=== PATIENT | female | born 1945 | race Caucasian/White ===

== ENCOUNTER 2016-08-03 15:33 | Emergency (ER) ==
[2016-08-03 15:57] VITALS: BP 129/65
--- NOTE | 2016-08-03 18:21 | PROVIDER DOCUMENTATION ---
HPI-EENT General - General Chief Complaint: Earache Stated Complaint: EARACHE Time Seen by Provider: 08/03/16 16:00 Source: patient Allergies/Adverse Reactions: Patient Allergies Allergy/AdvReac Type Severity Reaction Status Date / Time No Known Allergies Allergy Verified 08/03/16 16:51 Home Medications: Trazodone [Desyrel] 150 mg PO QHS 04/26/12 Digoxin 125 mcg PO DAILY 11/02/12 Diltiazem HCl [Diltiazem 24Hr ER] 300 mg PO DAILY 11/02/12 Fluticasone/Salmeterol [Advair 250-50 Diskus] 1 each IH DAILY 11/02/12 Ipratropium/Albuterol INH [Combivent Inhaler] 1 puff INH RTQ6H 11/02/12 Propafenone HCl 225 mg PO BID 11/02/12 Oxybutynin [Ditropan] 5 mg PO BID 06/10/14 Apixaban [Eliquis] 5 mg PO DAILY 10/29/14 Losartan Potassium 25 mg PO BID 10/29/14 Montelukast [Singulair] 10 mg PO DAILY 10/29/14 Potassium Chloride E.r. [Micro-K] 20 meq PO DAILY 10/29/14 Pravastatin Sodium 40 mg PO QHS 10/29/14 - History of Present Illness-EENT General Nature of Presenting Problem: This pt presents today c complaints of sinus pain, left ear pain and mild dry cough which causes pain in her Left side X 1 week. No fever, chills, n/v/d or respiratory distress. EENT Location: reports: ear (L), facial Quality of Pain: reports: aching Severity: reports: moderate Onset/Duration: reports: 1 week ago Prearrival Treatment: Initiated no prearrival treatment Associated Symptoms: reports: cough, facial pain/swelling, nasal congestion/ drainage, sinus infection Similar Symptoms Previously?: No Recently seen or treated by another doctor?: No Review of Systems - Adult - REVIEW OF SYSTEMS - ADULT Constitutional: reports: cayla. denies: chills, fever, night sweats Eyes: reports: no symptoms reported. denies: discharge, dry eyes Ears, Nose, Mouth & Throat: reports: ear pain, sinus problem. denies: ear discharge, nose pain, loose teeth Cardiovascular: reports: no symptoms reported. denies: chest pain, edema Respiratory: reports: cough. denies: chronic cough, pleurisy, shortness of breath Gastrointestinal: reports: no symptoms reported. denies: abdominal pain, hematemesis Genitourinary: reports: no symptoms reported. denies: dysuria, discharge Musculoskeletal: reports: see HPI. denies: bone pain, back pain Integumentary: reports: no symptoms reported. denies: hives, hair loss Neurological: reports: no symptoms reported. denies: dizziness/vertigo, headache/migraines Psychiatric: reports: no symptoms reported. denies: anxiety, anti-depressant use Endocrine: reports: no symptoms reported Hematologic/Lymphatic: reports: no symptoms reported Allergic/Immunologic: reports: no symptoms reported All Other Systems: Reviewed and Negative Past History - Adult - PAST MEDICAL HISTORY-ADULT Review of Records: reports: Old Records Reviewed, Nursing Assessment Review, Medications Reviewed, Social history reviewed & non-contributory. Major Childhood Illnesses: reports: denies history Cardiovascular: reports: CHF, HTN Respiratory: reports: asthma, COPD Gastrointestinal: reports: denies history Obstetrical/Gynecological: reports: denies history Genitourinary: reports: denies history Musculoskeletal: reports: chronic pain (back), neck/back injury Neurological: reports: denies history Endocrine/Immune: reports: denies history Other Conditions: reports: denies history - PRIOR SURGERIES/PROCEDURES Surgical/Procedure History: reports: cholecystectomy, other (tympanic membrane, cataract surgeries) - IMMUNIZATION STATUS Childhood Immunizations: See Nurse Assessment Flu Vaccine: See Nurse Assessment - FAMILY HISTORY Family History: reviewed, not pertinent Physical Exam- EENT - Physical Exam EENT Initial Vital Signs Reviewed: Yes General Appearance: appears well, alert, no apparent distress Eye Exam: bilateral eye: normal inspection, PERRL, EOMI Ear Exam: bilateral ear: auricle normal, canal normal, TM normal Nasal Exam: sinus tenderness Throat Exam: normal mouth inspection, pharynx normal. negative: pharynx tenderness, tonsillar exudate, tonsillar swelling Neck: non-tender, full range of motion, supple, normal inspection. negative: limited range of motion, lymphadenopathy, meningismus Respiratory: lungs clear, normal breath sounds, no pleuratic chest pain, no respiratory distress, no accessory muscle use, other (mild tenderness c palpation to left chest wall). negative: respiratory distress, decreased breath sounds, accessory muscle use, crackles, rales, rhonchi, prolonged expiration, pain on inspiration Cardiovascular: normal peripheral pulses, regular rate, rhythm, no edema, no gallop, no JVD, no murmur Abdominal Exam: normal bowel sounds, non tender, soft, no organomegaly, no pulsatile mass Lymphatic: no adenopathy Back Exam: normal inspection, no CVA tenderness, no vertebral tenderness Extremity: normal range of motion, non-tender, normal gait, normal inspection, no pedal edema, no calf tenderness, normal capillary refill, pelvis stable Integumentary: normal color, normal turgor, warm/dry Neurologic: surgery aid II-XII nml as tested, no motor/sensory deficits Psych/Mental Status: AL, normal mood/affect, normal thought content, normal thought process, oriented x 3 Progress - PLAN OF CARE/RESULTS Progress/Plan/Lab Results: Orders Category Date Time Status CHEST-2 VIEWS [RAD] Stat Exams 08/03/16 16:[address] THORAX W/O CONTRAST [CT] Stat Exams 08/03/16 16:42 Taken Vital Signs Temp Pulse Resp BP Pulse Ox 08/03/16 15:53 98.1 F 54 L 18 129/65 98 No Known Allergies Allergy (Verified 08/03/16 16:51) Trazodone [Desyrel] 150 mg PO QHS 04/26/12 Metoprolol [Lopressor] 25 mg PO BID #60 tablet 04/28/12 Digoxin 125 mcg PO DAILY 11/02/12 Diltiazem HCl [Diltiazem 24Hr ER] 300 mg PO DAILY 11/02/12 Fluticasone/Salmeterol [Advair 250-50 Diskus] 1 each IH DAILY 11/02/12 Ipratropium/Albuterol INH [Combivent Inhaler] 1 puff INH RTQ6H 11/02/12 Propafenone HCl 225 mg PO BID 11/02/12 Oxybutynin [Ditropan] 5 mg PO BID 06/10/14 Apixaban [Eliquis] 5 mg PO DAILY 10/29/14 Bisacodyl [Dulcolax] 10 mg LA QHS #20 supp 10/29/14 Losartan Potassium 25 mg PO BID 10/29/14 Montelukast [Singulair] 10 mg PO DAILY 10/29/14 Na Phos,M-B/Na Phos,Di-Ba [Fleet Enema] 133 ml LA HS PRN PRN #3 enema 10/29/14 Polyethylene Glycol 3350 [Miralax] 527 gm PO DAILY #1 powder 10/29/14 Potassium Chloride E.r. [Micro-K] 20 meq PO DAILY 10/29/14 Pravastatin Sodium 40 mg PO QHS 10/29/14 Albuterol 2.5MG/Ipratrop 0.5MG [Duoneb (A & A)] 3 ml .SEE ORDER Q6H PRN PRN # 120 neb 02/05/16 Doxycycline [Vibramycin] 100 mg PO BID #20 tablet 02/05/16 Loratadine [Claritin] 10 mg PO QHS #90 tablet 02/05/16 Discussed the results and importance of f/u c pt and family. They verbalized understanding and agreement c plan. - XRAY 1 XRAY Study: Chest XRAY Interpretation: ? area on LLL - CT/MRI 1 CT Study: Thorax Impression: Need Further Study (Follow-Up films) CT Results: Emphysema; 2cm opacity in LLL (pneumonitis vs neoplasm) Departure - Departure Time of Disposition Order: 18:20 DIAGNOSIS: Opacity of lung on imaging study Acute sinusitis Qualifiers: Sinusitis location: pansinusitis Recurrence: non-recurrent Qualified Code(s): J01.40 - Acute pansinusitis, unspecified Disposition: HOME 01 Certified Medical Emergency: Emergent Condition: Good Additional Instructions: Take medication as prescribed. As we discussed, follow up closely with your primary care provider. Return to the ER for any new or worsening symptoms. ED Follow Up Instructions: You have been treated by a care provider in the Emergency Department. These instructions are being provided to you so you can have an understanding of how to care for yourself upon discharge. Upon discharge from the Emergency Department, you are responsible for making arrangements for follow-up care by a physician of your choice. Take all prescribed medications as directed. Return to the Emergency Department immediately for any new or worsening symptoms. You may call the Physician Referral phone number at [phone] to obtain a list of Physicians who are taking new patients. Prescriptions: Guaifenesin/D-Methorphan Hb/PE [Deconex Dmx Tablet] 1 each PO TID #30 tablet Azithromycin [Zithromax Z-Leandro] 250 mg PO DIRECTED #1 pkg Referrals: Shantel Cotto CRNP [Primary Care Provider] - Attestation - Physician/ Mid-level Attestation Patient care was provided by Mid-level provider (MANAGER FILTER/PA):: Yes Mid-level provider:: Lazaro Haley Mid-level documentation review:: The Mid-level provider documentation, treatment plan and medical decision making was reviewed by the physician who agrees with all treatment and medical decision making by the MLP.
--- NOTE | 2016-08-03 21:27 | Diag Imaging Result Document ---
PROCEDURE NAME: CT THORAX W/O CONTRAST - 08/03/2016 STUDY: CT chest without contrast. PROTOCOL: Dose reduction protocol. There is a 1.9 cm rounded opacity in the posterior left lower lobe. Questionable tiny cavity along the inferior border. No pleural effusions. Minimal left posterior pleural thickening. There is a calcified granuloma in the left lower lobe and there are calcified left hilar lymph nodes. Mildly prominent noncalcified mediastinal lymph nodes as well. The heart is not enlarged. No thoracic aortic aneurysm. Emphysematous changes are present. Tiny nonspecific density in the left upper lobe on image 24. A 3-4 mm nonspecific nodule posteriorly in the right lung on image 37. Additional tiny density in the right lung on image 47. A 3-4 mm nodular density in the mid right lung on image 58. IMPRESSION: 1. There is a 1.9 cm rounded opacity in the left lower lobe which could be focal pneumonitis or neoplasm. Short-term followup recommended. 2. Emphysema. 3. Tiny nonspecific densities bilaterally. 4. There is evidence of a prior granulomatous infection. 5. Limited images through the upper abdomen reveals a cholecystectomy. A preliminary report was given at 5:53 p.m. [facility]
--- NOTE | 2016-08-04 06:49 | Diag Imaging Result Document ---
PROCEDURE NAME: CHEST-2 VIEWS - 08/03/2016 FRONTAL AND LATERAL CHEST, TWO VIEWS: COMPARISON: Compared to 02/05/1016. FINDINGS: The lungs are hyperexpanded. The heart is not enlarged. The pulmonary vessels are small. There is granuloma in the mid left lung. No pleural effusions. No consolidation. IMPRESSION: 1. Emphysema. 2. Rounded opacity seen on the recent CT is poorly identified on the plain films.
== END 2016-08-03 19:09 | disposition home or self-care (01) ==
LOC: ED 15:33
DX: J01.40 Acute pansinusitis, unspecified (principal); R94.2 Abnormal results of pulmonary function studies; R51 Headache; H92.02 Otalgia, left ear; R05 Cough; R53.83 Other fatigue; I10 Essential (primary) hypertension; J44.9 Chronic obstructive pulmonary disease, unspecified; Z79.899 Other long term (current) drug therapy; R09.81 Nasal congestion; M54.9 Dorsalgia, unspecified; G89.29 Other chronic pain; Z79.51 Long term (current) use of inhaled steroids; Z79.01 Long term (current) use of anticoagulants
CPT/HCPCS: 71020; 71250

== ENCOUNTER 2018-09-09 15:10 | Inpatient (IN) ==
--- NOTE | 2018-09-09 16:20 | Diag Imaging Result Doc PS360 ---
EXAM: CHEST-1 VIEW 09/09/2018 HISTORY: SEPSIS PROTOCOL TECHNIQUE: AP supine at 1615 COMMENT: There is elevation of the left hemidiaphragm as there was on 03/23/2018. Considering differences in inspiration and technique there has been no significant change. IMPRESSION: Stable chest. Electronically signed by Pal Pizarro 09/09/2018 4:18 PM
[2018-09-09 16:57] LABS: BASO# 0.06 X1000 (0.0-0.2); BASO% 0.2 % (0.0-0.8); EOS# 0.05 X1000 (0.0-0.7); EOS% 0.2 % (0.0-10.0); HEMATOCRIT 44.3 % (37.0-47.0); HEMOGLOBIN 15.2 g/dL (12.0-16.0); IMM GRAN# 0.37 X1000 (0.0-0.04); IMM GRAN% 1.4 % (0.0-0.5); LYMPH% 11.3 % (20.5-51.1); MCH 31.2 PG (27-31); MCHC 34.3 g/dL (33-37); MONO# 2.22 X1000 (0.11-0.59); MONO% 8.6 % (1.7-9.3); NEUT# 20.17 X1000 (1.4-6.5); NEUT% 78.3 % (42.2-75.2); PLT 341 X1000 (130-400); RBC 4.87 XMIL (4.2-5.4); RDW 13.1 % (11.5-14.5); WBC 25.77 X1000 (4.8-10.8)
[2018-09-09 17:04] LABS: INR 1.37; PROTIME 17.9 Seconds (11.0-16.0)
[2018-09-09 17:05] LABS: PTT 38.9 Seconds (22.3-41.8)
[2018-09-09 17:17] LABS: AGAP 14; ALB/GLOB RATIO 0.9; ALBUMIN 3.2 g/dL (3.5-5.0); ALKALINE PHOSPHATASE 310 U/L (32-104); BUN 19 mg/dL (8-22); CHLORIDE 91 mmol/L (98-107); CK PROFILE 64 U/L (24-173); COSMO 272; CREATININE 0.6 mg/dL (0.5-0.9); ESTIMATED GFR > 60; GLUCOSE 125 mg/dL (70-104); GOT 36 U/L (10-30); GPT 23 U/L (10-36); SODIUM 134 mmol/L (136-145); TCO2 29 mmol/L (25-35); TOTAL BILIRUBIN 0.43 mg/dL (0.20-1.00); TOTAL PROTEIN 6.8 g/dL (6.3-8.3)
--- NOTE | 2018-09-09 18:11 | Diag Imaging Result Doc PS360 ---
EXAM: CT HEAD W/CONTRAST HISTORY: large abscess on right face, pus out of ears TECHNIQUE: CT head without contrast COMPARISON: 09/04/2018 FINDINGS: No parenchymal hemorrhage. No epidural or subdural hematoma. No subarachnoid hemorrhage. There are chronic microvascular ischemic changes. No hydrocephalus. No midline shift. No intracranial enhancing lesion. Marked right facial soft tissue swelling. IMPRESSION: 1.No intracranial hemorrhage 2.Chronic microvascular ischemic changes 3.Marked right lateral facial soft tissue swelling This exam was performed using automated exposure control, adjustment of mA or kV according to patient size, and/or use of iterative reconstruction technique. Electronically signed by Eddie Carrasquillo 09/09/2018 6:09 PM
[2018-09-09] MEDS ORDERED: VANCOMYCIN 1 GM/NS 1 GM/250 ML IVPB IV ONE (18:28)
[2018-09-09] MEDS ORDERED: LEVAQUIN 500 MG/D5W 500 MG/100 ML IVPB IV ONE (18:28)
[2018-09-09] MEDS ORDERED: CIPRODEX OTIC SUSPENSION RIGHT EAR ONE (18:30)
[2018-09-09] MEDS ORDERED: ZOFRAN IV ONE (19:33)
[2018-09-09] MEDS ORDERED: MORPHINE IV ONE (19:33)
--- NOTE | 2018-09-09 19:42 | Diag Imaging Result Doc PS360 ---
EXAM: CT NECK W/CONTRAST HISTORY: large indurated area worse since last scan TECHNIQUE: CT neck with intravenous contrast. COMPARISON: 09/04/2018 FINDINGS: Multiple attempts made to dictate the exam, but secondary to a failure in the system no dictation could be made. Marked interval increase in the size of the right parotid gland. There is a large multi septated cystic area with peripheral enhancement as well as enhancement of the septations. This area measures at least 5.5 x 6.0 cm with extension deep to the right mandibular ramus. No air within the parotid gland. No calcifications seen. Bilateral prominent lymph nodes have an appearance similar to the prior study. There is actually decreased inflammation about the left parotid gland on the current study. IMPRESSION: Development of a large right parotid abscess. This exam was performed using automated exposure control, adjustment of mA or kV according to patient size, and/or use of iterative reconstruction technique. Electronically signed by Eddie Carrasquillo 09/09/2018 7:40 PM
[2018-09-09] MEDS ORDERED: ZOFRAN IV PRN (20:08)
[2018-09-09] MEDS: NS 1,000 ML IV SCH (20:15)
[2018-09-09 20:46] LABS: HEMOGLOBIN A1C 5.6 % (4.8-6.0)
[2018-09-09] MEDS ORDERED: COMBIVENT RESPIMAT INHALER INH SCH (22:00)
[2018-09-09] MEDS: DUONEB (A & A) INH SCH (22:00)
[2018-09-09] MEDS ORDERED: VANCOMYCIN IV PER PHARMACY MISC SCH (23:11)
[2018-09-09] MEDS: DESYREL PO SCH (23:20)
[2018-09-09] MEDS: DITROPAN PO SCH (23:21)
[2018-09-09] MEDS: KLONOPIN PO SCH (23:22)
[2018-09-09] MEDS: ELIQUIS PO SCH (23:22)
[2018-09-09] MEDS: ZANTAC PO SCH (23:23)
[2018-09-09] MEDS: LOPRESSOR PO SCH (23:24)
[2018-09-09] MEDS: HUMALOG SUBQ SCH (23:25)
[2018-09-09] MEDS: MORPHINE IV PRN (23:26)
[2018-09-10] MEDS ORDERED: VANCOMYCIN 500 MG/NS 500 MG/100 ML IVPB IV ONE (03:30)
[2018-09-10] MEDS: DUONEB (A & A) INH SCH ×4 (05:06→20:11)
[2018-09-10] MEDS: HUMALOG SUBQ SCH ×4 (06:32→20:12)
[2018-09-10] MEDS: PRILOSEC PO SCH (06:33)
--- NOTE | 2018-09-10 06:39 | HISTORY AND PHYSICAL ---
CHIEF COMPLAINT: Right ear pain, swelling to right face and neck. HISTORY OF PRESENT ILLNESS: This is a 73-year-old female with a past medical history of Parkinson's, hypertension, diastolic heart failure, hyperlipidemia, diabetes mellitus type 2, GERD and lung cancer who comes in after having pain in her right face, ear with drainage within her ear as well as her right neck. She also had some complaint of blurring of her right eye. This has been going on since, I believe the of this month. She was originally evaluated at [facility] at that time, sent home with pain management for what they thought was a right- sided parotid mass. Tonight, a laboratory workup as well as a CT of her neck and head were completed. This showed the development of a large right parotid abscess. The area was around 5.5 x 6 cm with extension to the deep right mandibular ramus. Dr. Mims with ENT was contacted by the ER provider. He recommended admission with treatment with Ciprodex drops to the right ear, Levaquin and vancomycin. She will be admitted for further evaluation and treatment. PAST MEDICAL HISTORY: 1. Atrial fibrillation. 2. Parkinsonism. 3. Hypertension. 4. Diastolic dysfunction. 5. Hyperlipidemia. 6. Diabetes mellitus type 2. 7. GERD. 8. Tobacco abuse. 9. Lung cancer. PREVIOUS SURGICAL HISTORY: 1. Cholecystectomy. 2. Lung biopsy. 3. Lobectomy. SOCIAL HISTORY: Smokes 1/2 pack a day, has for 50 years. She is retired, lives with her . No alcohol, no illicit drugs. FAMILY HISTORY: She denied any family history. No cardiac disease. No COPD. No breast cancer. ALLERGIES: No known drug allergies. HOME MEDICATIONS: A list of home medications could not be reconciled. Order was placed for nursing to reconcile home medications. I believe she takes Eliquis, oxycodone, Sinemet, Klonopin, digoxin, Cardizem and metoprolol. An updated list is pending. REVIEW OF SYSTEMS: Fourteen point review of systems conducted with the patient. She had complaint of right facial swelling, right neck swelling, right ear pain with drainage, blurriness of vision in the right eye as well as some abdominal pain. Otherwise, 14 point review of systems was negative. Other pertinent positives listed above in the HPI. PHYSICAL EXAMINATION: VITAL SIGNS: Temp 99.3 degrees, pulse 103, respirations 22, blood pressure 116/ 88, oxygen saturation 95% on room air. GENERAL: 73-year-old female lying in the ER stretcher, thin, does not appear to be in acute distress. HEENT: Head is atraumatic, normocephalic. Swelling of the right face down into neck. Pupils are equal, round and reactive to light. Right eye has mild drainage. Extraocular movements intact. Sclerae nonicteric. Conjunctivae pink. Oral mucosa is moist. NECK: Supple. No JVD. No thyromegaly. As noted above, swelling into right neck.Trachea is midline. CARDIAC: Irregularly irregular. S1, S2 appreciated. No murmurs, gallops, rubs. LUNGS: Clear to auscultation bilaterally. No rhonchi, wheezes, rales. Symmetrical rise and fall of respirations. ABDOMEN: Soft, nondistended, nontender. Bowel sounds present in all 4 quadrants. Normoactive. No pulsatile masses or organomegaly. EXTREMITIES: No cyanosis, clubbing or edema. GENITOURINARY: No bladder distention. Otherwise deferred. NEUROLOGICAL: No focal motor deficits. Otherwise nonfocal examination. DIAGNOSTIC DATA: CT of the head shows marked right lateral facial soft tissue swelling, chronic microvascular ischemic changes. CT of the neck shows development of a large right parotid abscess, 5.5 x 6 cm with extension deep to the right mandibular ramus. Chest x-ray: No consolidation. No pulmonary edema. LABORATORY DATA: WBC 25.77. PT 17.9, INR 1.37. Sodium 134, potassium 4, chloride 91, carbon dioxide 29. BUN 19, creatinine 0.6, glucose 125. ASSESSMENT AND PLAN: 1. Right parotid abscess. We will consult Dr. Mims. Hold patient NPO at this time after midnight. Blood cultures are pending. We will give Ciprodex ear drops for the right ear , Levaquin and vancomycin IV. Morphine as needed for pain. 2. Atrial fibrillation. We will continue patient's Cardizem, metoprolol and Eliquis. 3. Diastolic heart failure. Continue digoxin and other home medications. Monitor patient's I's and O's strictly. 4. Hyperlipidemia. Continue Zocor. 5. Leukocytosis secondary to #1. Further recommendations per patient's clinical course. Dictated by JAYSON Loza for Petey Augustin MD I have performed a face to face diagnostic evaluation. Labs/ xrays reviewed. Exam- HEENT- Rt facial edema A/P- Rt parotid abscess- Admit, IV ABX, NPO, ENT consult. Dr. Augustin This chart was documented by, [ cc: JAYSON Loza MD [facility]
--- NOTE | 2018-09-10 07:14 | EKG Report ---
Test Performed on : 09/09/2018 3:27:05 PM Test Reason : ED. NO EKG ORDER FOR MUSE Blood Pressure : / mmHG Vent. Rate : 080 BPM Atrial Rate : 234 BPM P-R Int : 000 ms QRS Dur : 084 ms QT Int : 394 ms P-R-T Axes : 000 023 -44 degrees QTc Int : 454 ms Atrial fibrillation. Septal infarct , age undetermined ST & T wave abnormality, consider inferior ischemia ST & T wave abnormality, consider anterolateral ischemia Abnormal ECG When compared with ECG of 04-SEP-2018 20:32, (Unconfirmed) Atrial fibrillation. has replaced Electronic ventricular pacemaker Unconfirmed Result
[2018-09-10 07:41] LABS: BASO# 0.07 X1000 (0.0-0.2); BASO% 0.4 % (0.0-0.8); EOS# 0.09 X1000 (0.0-0.7); EOS% 0.5 % (0.0-10.0); HEMATOCRIT 39.2 % (37.0-47.0); IMM GRAN# 0.21 X1000 (0.0-0.04); IMM GRAN% 1.1 % (0.0-0.5); LYMPH# 2.28 X1000 (1.2-3.4); LYMPH% 12.3 % (20.5-51.1); MCHC 33.2 g/dL (33-37); MCV 93.6 FL (81-99); MONO# 1.27 X1000 (0.11-0.59); MONO% 6.9 % (1.7-9.3); MPV 9.1 FL (7.4-10.4); NEUT% 78.8 % (42.2-75.2); PLT 253 X1000 (130-400); RBC 4.19 XMIL (4.2-5.4); RDW 13.3 % (11.5-14.5); WBC 18.52 X1000 (4.8-10.8)
[2018-09-10 07:46] LABS: INR 1.32; PROTIME 17.4 Seconds (11.0-16.0)
[2018-09-10 08:12] LABS: AGAP 12; BUN 17 mg/dL (8-22); CALCIUM 8.7 mg/dL (8.8-10.2); CHLORIDE 99 mmol/L (98-107); COSMO 283; CREATININE 0.5 mg/dL (0.5-0.9); ESTIMATED GFR > 60; GLUCOSE 129 mg/dL (70-104); POTASSIUM 2.9 mmol/L (3.5-5.1); SODIUM 140 mmol/L (136-145); TCO2 29 mmol/L (25-35)
[2018-09-10] MEDS: MORPHINE IV PRN ×3 (08:16→20:50)
--- NOTE | 2018-09-10 08:21 | CONSULTATION ---
DATE OF CONSULTATION: 09/10/2018 ADMITTING DIAGNOSIS: Right parotitis. ATTENDING: Giorgio Espinoza MD HISTORY: This is a 73-year-old woman with a 3- to 7-day history of right cheek swelling. She was seen in the emergency room last week and a scan was done at that point. She was discharged for outpatient treatment and has not improved. She has ear pain, some throat pain, is able to swallow well. She has a discharge from her ear. PHYSICAL EXAMINATION: Ears: On ear exam, right ear with purulent drainage. This was cultured today. Oral cavity: No lesions or masses. Dry mucosa. No swelling of the oropharynx. Tonsils are symmetric. Palate symmetric. No drooling. Neck: She has extensive swelling over the right parotid region. It is not fluctuant. Pus is draining out of the right ear down onto the neck. This was cultured and suctioned. IMPRESSION: Right parotitis. Usually this is caused from staphylococcus, so she is currently on vancomycin. The Ciprodex is to be placed in her ear canal in case she has some concomitant pseudomonal swimmer's ear type issue going on, until the culture comes back. This is usually not a surgical issue. Medication alone with hydration as tolerated should help to resolve this. Warm compress, massage, and hydration are helpful. Will follow along with you. The outline of the parotid swelling was marked today in pen so we can see if this is improving over time. cc: Wyatt Mora MD
[2018-09-10] MEDS: ADVAIR 250/50 DISKUS INH SCH (09:31)
[2018-09-10] MEDS: CIPRODEX OTIC SUSPENSION RIGHT EAR SCH ×2 (10:06→20:12)
[2018-09-10] MEDS: CARDIZEM PO SCH (10:07)
[2018-09-10] MEDS: PAXIL PO SCH (10:07)
[2018-09-10] MEDS: DITROPAN PO SCH ×2 (10:08→20:50)
[2018-09-10] MEDS: ELIQUIS PO SCH ×2 (10:08→20:50)
[2018-09-10] MEDS: LOPRESSOR PO SCH ×2 (10:08→20:10)
[2018-09-10] MEDS: ZOCOR PO SCH (10:08)
[2018-09-10] MEDS: NS 1,000 ML IV SCH ×2 (10:09→20:08)
[2018-09-10] MEDS: LANOXIN PO SCH (10:09)
[2018-09-10] MEDS: SINEMET 25/100 PO SCH ×3 (10:09→17:56)
[2018-09-10] MEDS ORDERED: XYLOCAINE 1%/EPI 1:100,000 INJ ONE (16:10)
--- NOTE | 2018-09-10 16:12 | PROGRESS NOTE ---
DATE: 09/10/2018 SUBJECTIVE: Ms. Navas was admitted. She has had swelling for over a week on the right side, looks like she has got acute parotitis and Dr. Jairo Mora has seen her. He wants to continue the antibiotic. No surgical drainage at this time. White count was 18,000. PHYSICAL EXAMINATION: Vital signs: Temperature 97.4 degrees, pulse 119, respirations 16, blood pressure 150/75. Eyes: Pupils are equal and round. Lungs: Clear in all lung woods. Cardiovascular: Regular rhythm and rate without murmur or S3. Abdomen: Soft. Skin: Warm and dry. ASSESSMENT AND PLAN: 1. Right side her face with significant swelling around the parotid, extended to the ear and she had some drainage in her ear, so there may be some actual bony erosion from this infection with continuity to the external canal, so continue present antibiotics. Most common organism is Staph aureus. We will give her some Levaquin as well to cover for Pseudomonas in case external ear organism such as swimmer's ear. She also has ciprofloxacin eye drops which they have given her. Dr. Mora sent cultures off from the ear and will continue present antibiotics, let the swelling go down. She still may need some surgical drainage. I reassured the family that there was no sign of tumor and suspect this was all bacterial infection. 2. Atrial fibrillation. Rate controlled. 3. History of Parkinson disease. 4. Hypertension. 5. History of diastolic dysfunction. 6. Hyperlipidemia. 7. Diabetes mellitus type 2. Follow and pattern sugars. 8. Gastroesophageal reflux disease. 9. Lung cancer. Aware. Looking at her lab, I do not see any change. cc: Giorgio Espinoza MD
[2018-09-10] MEDS: KLONOPIN PO SCH (20:10)
[2018-09-10] MEDS: LEVAQUIN 500 MG/D5W 500 MG/100 ML IVPB IV SCH (20:11)
[2018-09-10] MEDS: DESYREL PO SCH (20:11)
[2018-09-10] MEDS: ZANTAC PO SCH (20:11)
--- NOTE | 2018-09-10 21:03 | PROVIDER DOCUMENTATION ---
This chart was entered by Emely Bishop Scribe, acting as scribe for Rand Diaz MD. HPI-General Adult - General Chief Complaint: Earache Stated Complaint: DR POWERS REF Time Seen by Provider: 09/09/18 19:23 Source: EMS Allergies/Adverse Reactions: Patient Allergies Allergy/AdvReac Type Severity Reaction Status Date / Time No Known Allergies Allergy Verified 06/17/17 09:52 Home Medications: Home Medication List Medication Instructions Recorded Confirmed Last Taken Type Oxybutynin [Ditropan] 5 mg PO BID 06/10/14 09/10/18 05/24/18 08:00 History Apixaban [Eliquis] 5 mg PO BID 10/29/14 09/10/18 05/24/18 08:00 History Omeprazole 40 mg PO DAILY 12/20/16 09/10/18 05/24/18 08:00 History Ranitidine HCl [Zantac] 150 mg PO HS 12/20/16 09/10/18 05/24/18 08:00 History SIMVAstatin [Zocor] 40 mg PO DAILY 12/20/16 09/10/18 05/24/18 08:00 History Diltiazem [Cardizem] 300 mg PO DAILY 10/07/17 09/10/18 05/24/18 08:00 History Metoprolol [Lopressor] 25 mg PO BID 10/07/17 09/10/18 05/24/18 08:00 History Carbidopa/Levodopa [Sinemet 25/100] 1 tab PO TID 03/01/18 09/10/18 05/24/18 08: 00 History Digoxin 125 mcg PO DAILY 03/01/18 09/10/18 05/24/18 08:00 History Paroxetine [Paxil] 30 mg PO DAILY 03/01/18 09/10/18 05/24/18 08:00 History Mirtazapine 7.5 mg PO QHS 09/10/18 09/10/18 Unknown History - History of Present Illness -Gen Adult Nature of Presenting Problems: Pt presents to ED presents to ED w/ R sided ear pain and swelling. Pt was referred to ER by [facility]. She was given bactrim at home this morning. Swelling has worsened and she has yellow pus in ear. Location of Pain/Injury: reports: head (R ear) Pain Radiation: reports: no radiation Quality of Pain: reports: aching Severity: reports: moderate Onset/Duration: reports: this morning Timing: reports: still present Context/Activities at Onset: reports: none Modifying Factors: improves with: nothing Associated Symptoms: denies: back/neck pain, chest pain, diarrhea, dizziness Similar Symptoms Previously?: Yes Recently seen or treated by another doctor?: Yes Review of Systems - Adult - REVIEW OF SYSTEMS - ADULT Constitutional: reports: no symptoms reported. denies: chills, fever Eyes: reports: no symptoms reported Ears, Nose, Mouth & Throat: reports: ear discharge, ear pain, mouth swelling (R soft palatte swollen), other (R side of face near ear is very swollen). denies : throat pain, throat swelling Cardiovascular: reports: no symptoms reported Respiratory: reports: no symptoms reported. denies: cough, shortness of breath , wheezing Gastrointestinal: reports: no symptoms reported Genitourinary: reports: no symptoms reported Musculoskeletal: reports: no symptoms reported Integumentary: reports: no symptoms reported Neurological: reports: no symptoms reported. denies: dizziness/vertigo, headache/migraines Psychiatric: reports: no symptoms reported Endocrine: reports: no symptoms reported Hematologic/Lymphatic: reports: no symptoms reported Allergic/Immunologic: reports: no symptoms reported All Other Systems: Reviewed and Negative Past History - Adult - PAST MEDICAL HISTORY-ADULT Review of Records: reports: Old Records Reviewed, Nursing Assessment Review, Medications Reviewed, Social history reviewed & non-contributory. Major Childhood Illnesses: reports: denies history Cardiovascular: reports: A-Fib, CHF, HTN, hyperlipidemia Respiratory: reports: asthma, COPD, cancer (lung) Gastrointestinal: reports: GERD Obstetrical/Gynecological: reports: denies history Genitourinary: reports: chronic UTI's Musculoskeletal: reports: chronic pain (back), neck/back injury Neurological: reports: denies history Endocrine/Immune: reports: denies history Other Conditions: reports: denies history - PRIOR SURGERIES/PROCEDURES Surgical/Procedure History: reports: cholecystectomy, other (tympanic membrane, cataract surgeries) - IMMUNIZATION STATUS Childhood Immunizations: See Nurse Assessment Flu Vaccine: See Nurse Assessment - FAMILY HISTORY Family History: reviewed, not pertinent - SOCIAL HISTORY Smoking: denies, non-smoker Provider spent 3-5 mins advising pt. on dangers of tobacco.: Discussed manners to quit use, and f/u contacts for add'l counseling. Alcohol Use Frequency: never Living Situation: family Physical Exam-General - PHYSICAL EXAM-ADULT Initial Vital Signs Reviewed: Yes - CONSTITUTIONAL General Appearance: appears well, alert, no apparent distress - EYES Eyes: PERRL/EOMI - HEAD, EARS, NOSE, MOUTH & THROAT HENMT: TM abnormal (pt has swelling and ear tenderness. Yellow pus out of R ear canal), maxillary tenderness (swelling), other - NECK Neck: non-tender, full range of motion, supple - RESPIRATORY Respiratory: chest non-tender, lungs clear, normal breath sounds - CARDIOVASCULAR Cardiovascular: regular rate, rhythm, no murmur - GASTROINTESTINAL (ABDOMEN) Abdominal Exam: normal bowel sounds, non tender, soft - LYMPHATIC Lymphatic: enlargement - MUSCULOSKELETAL Back Exam: normal inspection, no CVA tenderness, no vertebral tenderness Extremity: normal range of motion, non-tender, normal gait, normal inspection - SKIN Integumentary: normal color, warm/dry - NEUROLOGIC Neurologic: grossly normal - PSYCHIATRIC Psych/Mental Status: normal mood/affect, normal thought content, normal thought process, oriented x 3 Progress - PLAN OF CARE/RESULTS Progress/Plan/Lab Results: Vital Signs - 8 hr 09/09/18 15:18 Temperature 99.3 F Pulse Rate 120 H Respiratory Rate 20 Blood Pressure 125/99 O2 Sat by Pulse Oximetry 95 Laboratory Results - last 24 hr 09/09/18 09/09/18 09/09/18 16:40 16:40 16:40 WBC 25.77 H RBC 4.87 Hgb 15.2 Hct 44.3 MCV 91.0 MCH 31.2 H MCHC 34.3 RDW Std Deviation 13.1 Plt Count 341 MPV 9.0 Immature Gran % (Auto) 1.4 H Neut % (Auto) 78.3 H Lymph % (Auto) 11.3 L [place] % (Auto) 8.6 Eos % (Auto) 0.2 Baso % (Auto) 0.2 Immature Gran # (Auto) 0.37 H Neut # (Auto) 20.17 H Lymph # (Auto) 2.90 [place] # (Auto) 2.22 H Eos # (Auto) 0.05 Baso # (Auto) 0.06 PT 17.9 H INR 1.37 PTT (Actin FS) 38.9 Sodium 134 L Potassium 4.0 Chloride 91 L Carbon Dioxide 29 Anion Gap 14 BUN 19 Creatinine 0.6 Estimated GFR/1.73 m2 > 60 BUN/Creatinine Ratio 32 Glucose 125 H Calculated Osmolality 272 Calcium 9.0 Total Bilirubin 0.43 AST 36 H ALT 23 Alkaline Phosphatase 310 H Creatine Kinase 64 Troponin T Nzu-S-Softixhzlvw Pept Total Protein 6.8 Albumin 3.2 L Globulin 3.6 Albumin/Globulin Ratio 0.9 Plasma Lactate 09/09/18 09/09/18 09/09/18 16:40 18:51 18:51 WBC RBC Hgb Hct MCV MCH MCHC RDW Std Deviation Plt Count MPV Immature Gran % (Auto) Neut % (Auto) Lymph % (Auto) [place] % (Auto) Eos % (Auto) Baso % (Auto) Immature Gran # (Auto) Neut # (Auto) Lymph # (Auto) [place] # (Auto) Eos # (Auto) Baso # (Auto) PT INR PTT (Actin FS) Sodium Potassium Chloride Carbon Dioxide Anion Gap BUN Creatinine Estimated GFR/1.73 m2 BUN/Creatinine Ratio Glucose Calculated Osmolality Calcium Total Bilirubin AST ALT Alkaline Phosphatase Creatine Kinase Troponin T < 0.010 Agk-G-Daogjbohste Pept 1314 H Total Protein Albumin Globulin Albumin/Globulin Ratio Plasma Lactate 1.6 Orders Category Date Time Status Cardiac Monitoring DIRECTED Care 09/09/18 15:44 Active IV Insertion ORDERED Care 09/09/18 15:44 Completed Notify MD of + Sepsis Screen NOW Care 09/09/18 15:44 Active Notify Physician As Ordered Care 09/09/18 15:44 Active CHEST-1 VIEW [RAD] Stat Exams 09/09/18 15:[address] HEAD W/CONTRAST [CT] Stat Exams 09/09/18 17:[address] NECK W/CONTRAST [CT] Stat Exams 09/09/18 17:26 Taken BLOOD CULTURE [BLDCUL] Stat Lab 09/09/18 16:40 Results BNP [PRO B-NATRIURETIC PEPTIDE] Stat Lab 09/09/18 18:51 Completed CBC WITH DIFF [HEME] Stat Lab 09/09/18 16:40 Completed CK PROFILE [SP CHEM] Stat Lab 09/09/18 16:40 Completed COMPREHENSIVE METABOLIC PANEL [CHEM] Stat Lab 09/09/18 16:40 Completed LACTATE, PLASMA [CHEM] Lab 09/09/18 18:45 Uncollected LACTATE, PLASMA [CHEM] Lab 09/09/18 21:45 Uncollected LACTATE, PLASMA [CHEM] Q3H Lab 09/09/18 16:40 Completed PROTIME WITH INR [COAG] Stat Lab 09/09/18 16:40 Completed PTT [COAG] Stat Lab 09/09/18 16:40 Completed TROPONIN T Stat Lab 09/09/18 18:51 Completed URINALYSIS W/POSS RFLX CULT [URINALYSIS] Stat Lab 09/09/18 15:44 Uncollected Ciproflox/Dexameth Otic Susp [Ciprodex Otic Suspension] Med 09/09/18 18:30 Discontinued See Dose Instructions RIGHT EAR NOW ONE Levofloxacin 500 mg/D5w [Levaquin 500 mg/D5w] Med 09/09/18 18:28 Active 500 mg in 100 ml IV NOW Vancomycin 1 gm/Ns Med 09/09/18 18:28 Active 1 gm in 250 ml IV NOW Oxygen Device Stat Oth 09/09/18 15:44 Active Result Diagrams: 09/10/18 07:19 09/10/18 07:19 - CONSULTS/PCP/HOSPITALIST Notification #1 *Consult/PCP/Hospitalist*: Dr. Mora ENT Time Discussed: 18:50 (unsure of exact time) Reason/Comments: recommends Vanc, Leviquin and Cipro + admission #2 Consult: Charli Time Discussed: 19:10 Reason/Comments: Dr Augustin agrees to admit Consult Disposition: Admit Departure - Departure Date of Disposition Decision: 09/09/18 Time of Disposition Decision: 18:44 DIAGNOSIS: Parotid abscess Disposition: ADMITTED INPATIENT 09 Certified Medical Emergency: Emergent Condition: Critical - Critical Care Note This patient required my direct & personal management of CC.: No Attestation - Physician/ ROBERTO Attestation Patient care was provided by Advanced Practice Provider:: No The physician spent face to face time with patient:: Yes Advanced Practice Provider documentation review:: Supervising physician onsite and consulted in the evaluation and care of this patient. The physician did have a face to face encounter with the patient. This chart was documented by the indicated scribe, (Emely Bishop Scribe) and accurately reflects the services I performed and decisions made by me, Rand Diaz MD, as attested by the provider's signature.
[2018-09-11] MEDS: DUONEB (A & A) INH SCH ×4 (03:35→20:05)
[2018-09-11] MEDS: HUMALOG SUBQ SCH ×4 (07:50→21:36)
[2018-09-11] MEDS: ZOCOR PO SCH (09:38)
[2018-09-11] MEDS: SINEMET 25/100 PO SCH ×3 (09:38→16:29)
[2018-09-11] MEDS: PAXIL PO SCH (09:38)
[2018-09-11] MEDS: PRILOSEC PO SCH (09:38)
[2018-09-11] MEDS: LANOXIN PO SCH (09:39)
[2018-09-11] MEDS: DITROPAN PO SCH ×2 (09:39→21:35)
[2018-09-11] MEDS: CARDIZEM PO SCH (09:39)
[2018-09-11] MEDS: ELIQUIS PO SCH ×2 (09:39→21:35)
[2018-09-11] MEDS: LOPRESSOR PO SCH ×2 (09:39→21:35)
[2018-09-11] MEDS: CIPRODEX OTIC SUSPENSION RIGHT EAR SCH ×2 (09:40→21:37)
--- NOTE | 2018-09-11 10:42 | PROGRESS NOTE ---
DATE: 09/11/2018 INDICATION FOR SURGERY: This is a lady I am following with a parotid abscess. The abscess was drained at the bedside last night under local anesthetic, approximately 1 inch in depth in direction circumferentially performed from the incision site. Some drainage was noted, but on exam this morning the drain site was fairly clean and not much drainage overnight was seen. There was more extensive draining coming from her ear now than there is from the incision and drainage site. I have spoken with the patient and her daughter Kerline regarding the need for further exploration. They understand that the facial nerve is at risk given the distortion of the anatomy and unclear landmarks in the region. They understand that there is a possibility for temporary permanent weakness of the facial nerve globally, eyes, mouth, etc. They also understand that it is possible that the incision and drainage alone may not contain this process of infection. We await Gram stain and culture information, though we do know that there is 1+ gram positive cocci on the Gram stain. The plan is to contact Anesthesia and get her ready for surgery. She does have low potassium this morning. We may have to deal with that. She is n.p.o. currently and set for noon for incision and drainage of right parotid abscess. cc: Wyatt Mora MD
[2018-09-11] MEDS: ADVAIR 250/50 DISKUS INH SCH (10:56)
[2018-09-11] MEDS: POTASSIUM CHLORIDE 20 MEQ/SWI 20 MEQ/100 ML IVPB IV SCH ×2 (11:01→17:40)
--- NOTE | 2018-09-11 11:33 | PROGRESS NOTE ---
DATE: 09/11/2018 SUBJECTIVE: Ms. Navas is resting comfortably. The swelling looks like it has gone down a little bit. Dr. Jairo Mora had done a little incision in the right parotid. I think he is planning for surgery. Wound cultures pending. PHYSICAL EXAMINATION: Exam today shows temperature 97.6 degrees, pulse 127, and respiration rate 14.HEENT: Pupils are equal. Lungs: Clear in all lung woods. Cardiovascular: Regular rhythm and rate without murmur or S3. Abdomen: Soft. Skin: Warm and dry. LABORATORY: Blood sugar 164, 129 and 150. ASSESSMENT AND PLAN: 1. Parotid abscess and infection. Abscess drained at bedside under local anesthesia about 1 inch depth in direction and circumferential performed from the incision site. This morning the drainage site apparently appears clean and not with drainage, but more extensive drainage coming from her ear. Dr. Jairo Mora is going to I think try and do further drainage and I D. 2. Atrial fibrillation. Rate controlled. 3. History of Parkinson's disease. 4. Hypertension. 5. History of diastolic dysfunction. 6. Hyperlipidemia. 7. Diabetes mellitus type 2. 8. Gastroesophageal reflux disease. 9. History of lung cancer. 10. Currently on IV vancomycin. She is on Levaquin 500 mg IV q.24 hours and vancomycin which is 1200 mg IV q.36 hours. cc: Giorgio Espinoza MD
[2018-09-11] MEDS ORDERED: DIPRIVAN 1% ONE (11:37)
[2018-09-11] MEDS ORDERED: QUELICIN (DOSE) ONE (11:39)
[2018-09-11] MEDS ORDERED: FENTANYL ONE (11:40)
[2018-09-11] MEDS ORDERED: VANCOMYCIN ONE (11:55)
[2018-09-11] MEDS ORDERED: XYLOCAINE 1%/EPI 1:100,000 ONE (12:27)
[2018-09-11] MEDS ORDERED: ZOFRAN ONE (12:50)
[2018-09-11] MEDS: NS 1,000 ML IV SCH ×2 (13:56→16:28)
[2018-09-11] MEDS: APRESOLINE ONE ×2 (14:08→17:40)
[2018-09-11] MEDS: NARCAN ONE ×2 (14:11→17:40)
[2018-09-11 14:32] LABS: AGAP 9; BUN 6 mg/dL (8-22); CALCIUM 8.2 mg/dL (8.8-10.2); CHLORIDE 94 mmol/L (98-107); COSMO 265; CREATININE 0.3 mg/dL (0.5-0.9); ESTIMATED GFR > 60; GLUCOSE 121 mg/dL (70-104); MAGNESIUM 1.7 mg/dL (1.5-2.7); POTASSIUM 3.1 mmol/L (3.5-5.1); SODIUM 133 mmol/L (136-145); TCO2 30 mmol/L (25-35)
[2018-09-11] MEDS ORDERED: MAGNESIUM SULFATE 2 GM/S.W.I. 2 GM/50 ML IVPB IV ONE (15:30)
--- NOTE | 2018-09-11 15:36 | OPERATIVE NOTE ---
PROCEDURE DATE : 09/11/2018 ADMITTING PHYSICIAN: Dr. Giorgio Espinoza SURGEON: Dr. Wyatt Mora PREOPERATIVE DIAGNOSIS: Right parotid abscess. POSTOPERATIVE DIAGNOSES: 1. Right parotid abscess. 2. Deep neck abscess. PROCEDURE PERFORMED: Incision and drainage of deep neck and parotid abscess. COMPLICATIONS: None. ANESTHESIA: General. FINDINGS: Purulent exudate from parotid and deep neck space in the deep lobe of the parotid. DESCRIPTION OF PROCEDURE: The patient was identified. The daughter and the patient were consented. Options were reviewed. She was brought to the operating room and placed in a supine position where general anesthesia was induced with endotracheal intubation. A curvilinear incision was injected in preauricular and postauricular in standard parotidectomy incision site. This area was prepped and draped in the usual sterile fashion. Lidocaine 1% and 1:100,000 epinephrine was injected. The incision was created down to the parotid fascia. This parotid fascia was incised widely from the anterior border of the sternocleidomastoid up to the preauricular region. Dissection with instrumentation was used to dissect into the parotid stroma. Multiple loculations of infection were opened up and drained and irrigated with vancomycin and saline solution. The deep lobe was approached by dissecting down to the digastric and then superior from that and medial. The dissection was performed bluntly down to the deep level of the parotid where a loculation was encountered at this point. Purulent drainage was irrigated from all of these loculations that were opened up in the parotid stroma, deep and superficial, and deep neck space. Vancomycin and saline irrigation was used in all of these regions until it ran clear. The area was suctioned from debris that had been draining into that region. Two drains, Axel type, 1 on the inferior and 1 on the superior aspects of the incision were placed inside the wound, brought out. Skin clips were placed intermittently throughout the length of the incision for loose closure. The patient tolerated the procedure well. Pressure dressing was applied. She was allowed to recover from anesthesia, extubated and transferred to the recovery room in stable condition. cc: Wyatt Mora MD
[2018-09-11] MEDS: VANCOMYCIN 1,200 MG in NS 250 ML IV SCH (16:29)
[2018-09-11] MEDS ORDERED: POTASSIUM CHLORIDE 40 MEQ in NS 250 ML IV ONE (16:30)
[2018-09-11 18:20] LABS: AGAP 8; BUN 5 mg/dL (8-22); CHLORIDE 90 mmol/L (98-107); COSMO 261; CREATININE 0.4 mg/dL (0.5-0.9); ESTIMATED GFR > 60; GLUCOSE 147 mg/dL (70-104); MAGNESIUM 2.3 mg/dL (1.5-2.7); POTASSIUM 2.9 mmol/L (3.5-5.1); SODIUM 130 mmol/L (136-145); TCO2 32 mmol/L (25-35)
[2018-09-11] MEDS: DESYREL PO SCH (21:34)
[2018-09-11] MEDS: ZANTAC PO SCH (21:34)
[2018-09-11] MEDS: KLONOPIN PO SCH (21:34)
[2018-09-12] MEDS: LEVAQUIN 500 MG/D5W 500 MG/100 ML IVPB IV SCH ×2 (00:08→20:22)
[2018-09-12] MEDS: NS 1,000 ML IV SCH ×3 (01:36→20:24)
[2018-09-12] MEDS: DUONEB (A & A) INH SCH ×4 (03:10→21:55)
[2018-09-12] MEDS: PRILOSEC PO SCH (06:10)
[2018-09-12] MEDS: TYLENOL PO PRN (06:12)
[2018-09-12] MEDS: HUMALOG SUBQ SCH ×4 (06:27→21:09)
[2018-09-12 07:53] LABS: AGAP 8; BUN 5 mg/dL (8-22); CALCIUM 8.2 mg/dL (8.8-10.2); CHLORIDE 94 mmol/L (98-107); COSMO 268; CREATININE 0.4 mg/dL (0.5-0.9); ESTIMATED GFR > 60; GLUCOSE 114 mg/dL (70-104); SODIUM 135 mmol/L (136-145); TCO2 33 mmol/L (25-35)
[2018-09-12] MEDS: ADVAIR 250/50 DISKUS INH SCH (09:28)
[2018-09-12] MEDS: ELIQUIS PO SCH ×2 (10:00→20:22)
[2018-09-12] MEDS: LANOXIN PO SCH (10:00)
[2018-09-12] MEDS: CARDIZEM PO SCH (10:00)
[2018-09-12] MEDS: DITROPAN PO SCH ×2 (10:00→20:22)
[2018-09-12] MEDS: PAXIL PO SCH (10:01)
[2018-09-12] MEDS: LOPRESSOR PO SCH ×2 (10:01→20:23)
[2018-09-12] MEDS: SINEMET 25/100 PO SCH ×3 (10:01→18:12)
[2018-09-12] MEDS: ZOCOR PO SCH (10:01)
[2018-09-12] MEDS: CIPRODEX OTIC SUSPENSION RIGHT EAR SCH ×2 (10:02→20:05)
--- NOTE | 2018-09-12 13:23 | PROGRESS NOTE ---
DATE: 09/12/2018 Ms. Navas was sleeping resting comfortably. We had to give her some [place] yesterday evening. She is still pretty lethargic. She does wake up to touch and voice but then falls right back to sleep. Breathing appears comfortable. She remains afebrile. Temperature 97.9 degrees, pulse 96, respirations 16, blood pressure 125/70. Pupils are equal and round.Lungs: Clear in all lung woods. Cardiovascular: Regular rhythm, rate without murmur or S3. Urine output is [address] Mora took her down. She had a right parotid abscess deep neck abscess incision and drainage of neck and parotid abscess. Cultures grew MRSA Staphylococcus. She is already on vancomycin. I will get Dr. Corrales on the case. I am not sure if we need to add some rifampin. Continue present antibiotics for now. 2. History of atrial fibrillation, rate is controlled. Hemodynamically appears stable. 3. History of Parkinson disease. 4. Hypertension. 5. History of congestive heart failure with normal ejection fraction or diastolic dysfunction. 6. Hyperlipidemia. 7. Diabetes mellitus type 2. 8. Gastroesophageal reflux disease. 9. History of lung cancer in the past. 10. Going to continue the vancomycin and I am going to continue the Levaquin that Dr. Mora would like to cover for Pseudomonas as well. I will ask Dr. Corrales to see in the morning for Infectious Disease. cc: Giorgio Espinoza MD
[2018-09-12] MEDS: MORPHINE IV PRN (13:43)
[2018-09-12] MEDS: POTASSIUM CHLORIDE 20 MEQ/SWI 20 MEQ/100 ML IVPB IV SCH ×2 (15:01→18:11)
[2018-09-12] MEDS: DESYREL PO SCH (20:22)
[2018-09-12] MEDS: ZANTAC PO SCH (20:23)
[2018-09-12] MEDS: KLONOPIN PO SCH (20:23)
[2018-09-13] MEDS: MORPHINE IV PRN ×3 (02:26→21:34)
[2018-09-13] MEDS: VANCOMYCIN 1,200 MG in NS 250 ML IV SCH (02:29)
[2018-09-13] MEDS: DUONEB (A & A) INH SCH ×4 (03:45→21:30)
[2018-09-13] MEDS: NS 1,000 ML IV SCH ×4 (06:02→18:08)
[2018-09-13] MEDS: HUMALOG SUBQ SCH ×3 (06:22→17:22)
[2018-09-13 07:27] LABS: BASO# 0.01 X1000 (0.0-0.2); BASO% 0.1 % (0.0-0.8); EOS# 0.09 X1000 (0.0-0.7); EOS% 0.8 % (0.0-10.0); HEMATOCRIT 38.6 % (37.0-47.0); HEMOGLOBIN 12.4 g/dL (12.0-16.0); IMM GRAN# 0.08 X1000 (0.0-0.04); IMM GRAN% 0.7 % (0.0-0.5); LYMPH# 2.08 X1000 (1.2-3.4); LYMPH% 19.5 % (20.5-51.1); MCHC 32.1 g/dL (33-37); MCV 96.5 FL (81-99); MONO# 0.96 X1000 (0.11-0.59); MPV 8.9 FL (7.4-10.4); NEUT# 7.45 X1000 (1.4-6.5); NEUT% 69.9 % (42.2-75.2); PLT 267 X1000 (130-400); WBC 10.67 X1000 (4.8-10.8)
[2018-09-13 07:50] LABS: AGAP 10; BUN 5 mg/dL (8-22); CALCIUM 8.7 mg/dL (8.8-10.2); CHLORIDE 96 mmol/L (98-107); COSMO 277; CREATININE 0.4 mg/dL (0.5-0.9); ESTIMATED GFR > 60; GLUCOSE 102 mg/dL (70-104); MAGNESIUM 1.8 mg/dL (1.5-2.7); POTASSIUM 2.9 mmol/L (3.5-5.1); SODIUM 140 mmol/L (136-145); TCO2 34 mmol/L (25-35)
[2018-09-13] MEDS: CARDIZEM PO SCH (09:04)
[2018-09-13] MEDS: ZOCOR PO SCH (09:04)
[2018-09-13] MEDS: SINEMET 25/100 PO SCH ×3 (09:05→17:27)
[2018-09-13] MEDS: DITROPAN PO SCH ×2 (09:05→21:29)
[2018-09-13] MEDS: CIPRODEX OTIC SUSPENSION RIGHT EAR SCH ×2 (09:06→21:27)
[2018-09-13] MEDS: PAXIL PO SCH (09:06)
[2018-09-13] MEDS: ELIQUIS PO SCH ×2 (09:07→21:29)
[2018-09-13] MEDS: LOPRESSOR PO SCH ×2 (09:07→21:29)
[2018-09-13] MEDS: PRILOSEC PO SCH (09:07)
[2018-09-13] MEDS: LANOXIN PO SCH (09:08)
[2018-09-13] MEDS: ADVAIR 250/50 DISKUS INH SCH (11:30)
--- NOTE | 2018-09-13 17:30 | PROGRESS NOTE ---
DATE: 09/13/2018 SUBJECTIVE: Ms. Navas is feeling better. She was sleeping but easy to arouse. States she has a little bit of vertigo and still some obvious pain in the right cheek. OBJECTIVE: Vital Signs: Temperature 98.1, afebrile, pulse 87, respirations 18, blood pressure 114/59. HEENT: Pupils are equal and round. Lungs: Clear in all lung woods. Cardiovascular: Regular rhythm and rate without murmur or S3. Abdomen: Soft. Skin: Warm and dry. LABORATORY STUDIES: Blood sugar 133, 117, 137. ASSESSMENT AND PLAN: 1. Parotid abscess, deep neck abscess status post incision and drainage. Continue present antibiotics. Getting vancomycin covering broad-spectrum as well for now. I think vancomycin and on some Levaquin to cover for possible Pseudomonas from external ear. 2. History of atrial fibrillation, rate is controlled. 3. History of Parkinson disease. 4. Hypertension. 5. History of congestive heart failure with normal ejection fraction, so diastolic dysfunction. Well compensated. 6. Hyperlipidemia. 7. Diabetes mellitus, type 2. 8. Gastroesophageal reflux disease. 9. History lung cancer in the past. So, continue vancomycin and Levaquin. Dr. Corrales to review the antibiotics. Seems like we are making progress. The culture did grow back methicillin-resistant staph which is what was expected. Blood cultures x2 show no growth after 48 hours. cc: Giorgio Espinoza MD
[2018-09-13] MEDS: CUBICIN 400 MG in NS 100 ML IV SCH (18:07)
--- NOTE | 2018-09-13 18:12 | INFECTIOUS DISEASE CONSULT REP ---
DATE: 09/13/2018 CONCLUSION: The patient is status post incision and drainage of a right parotid abscess and a right deep neck abscess. RECOMMENDATIONS: I have discontinued vancomycin and Zocor and I have put the patient on daptomycin. I am putting her on daptomycin because she already has decreased hearing. I have discontinued Zocor because it, along with daptomycin can enhance the risk of having muscle toxicity. DISCUSSION: The patient was very hard of hearing and when I did ask her questions, she gave me oftentimes the wrong answer, such as I asked her if she had ever had prior surgery and she said no. Therefore, I was unable to get any information from her and no family member was present. The patient came in because of right ear pain and swelling on the right side of the face and neck. She was taken to surgery by Dr. Wyatt Mora, who drained the parotid and deep neck abscesses as mentioned above. LABS: Culture from the right ear is growing methicillin-resistant Staph aureus. The blood cultures are sterile. The patient's CBC shows a white count of 10,670, hemoglobin 12.4, and platelet count 267,000. Creatinine is 0.4. GFR is greater than 60. Alkaline phosphatase is 310. PAST MEDICAL HISTORY: Positive for atrial fibrillation, parkinsonism, hypertension, diastolic dysfunction, hyperlipidemia, diabetes mellitus, gastroesophageal reflux disease, tobacco abuse, lung cancer, and extremely poor oral hygiene with most of her teeth necrotic. PAST SURGICAL HISTORY: Previous surgeries include a cholecystectomy, lung biopsy and lobectomy. SOCIAL HISTORY: The patient smokes cigarettes now for more than 50 years. She is retired. She lives with her . She does not drink alcoholic beverages or abuse drugs. FAMILY HISTORY: Negative for cardiac disease and cancer. ALLERGIES: The patient has no known drug allergies. HOME MEDICATIONS: Consist of Eliquis, Sinemet, digoxin, Cardizem, Lopressor, mirtazapine, omeprazole, Ditropan, Paxil, Zantac and Zocor. PHYSICAL EXAMINATION: Vital Signs: Temperature is 98.1, pulse 87, respirations 18, blood pressure 114/59. Patient is 5 feet 2 inches tall and weighs 135 pounds. General: This is an ill- appearing elderly female. She is in no acute distress. HEENT: The patient has a large dressing around her head and ears. Dressing is intact. She was very hard of hearing and how much of it is due to the dressing is uncertain to me. Neck: No meningismus. Thorax: The patient has an increased AP diameter of the chest. Lungs: Clear to auscultation. Cardiovascular: Heart rate is irregular. Abdomen: Soft and not tender. Neurologic: The patient is awake she can move her extremities. There is no tremor. Integument: No rash. Thank you for the consult. cc: Arvin Corrales MD
[2018-09-13] MEDS: KLONOPIN PO SCH (21:29)
[2018-09-13] MEDS: DESYREL PO SCH (21:29)
[2018-09-13] MEDS: ZANTAC PO SCH (21:30)
[2018-09-14] MEDS: DUONEB (A & A) INH SCH ×4 (03:40→19:12)
[2018-09-14] MEDS: HUMALOG SUBQ SCH ×5 (03:41→21:08)
[2018-09-14] MEDS: NS 1,000 ML IV SCH ×2 (06:16→20:10)
[2018-09-14] MEDS: PRILOSEC PO SCH (08:01)
[2018-09-14] MEDS: DITROPAN PO SCH ×2 (08:02→20:12)
[2018-09-14] MEDS: CARDIZEM PO SCH (08:02)
[2018-09-14] MEDS: LOPRESSOR PO SCH ×2 (08:03→20:12)
[2018-09-14] MEDS: PAXIL PO SCH (08:03)
[2018-09-14] MEDS: SINEMET 25/100 PO SCH ×3 (08:04→16:14)
[2018-09-14] MEDS: LANOXIN PO SCH (08:05)
[2018-09-14] MEDS: ELIQUIS PO SCH ×2 (08:05→20:12)
[2018-09-14] MEDS: CIPRODEX OTIC SUSPENSION RIGHT EAR SCH (08:08)
[2018-09-14] MEDS: ADVAIR 250/50 DISKUS INH SCH (11:22)
--- NOTE | 2018-09-14 12:30 | PROGRESS NOTE ---
DATE: 09/14/2018 SUBJECTIVE: This patient states that she is feeling better. She is not complaining of shortness of breath or chest pain. No headache. She is complaining of mild pain at the level of the right parotid wound. OBJECTIVE: Vital Signs: Temperature 98.2 degrees, pulse 87, respiratory rate 15, blood pressure 140/83, oxygen saturation 95 on room air. HEENT: Head normocephalic. PERRLA. She does have a dressing around her head, especially her right side of the face, including her ear. I do not see any drainage. Neck: Supple. No JVD. Central trachea. Chest: Clear to auscultation. No wheezing. No rales. Abdomen: Soft, nontender, nondistended. No hepatosplenomegaly. Extremities: No edema. No clubbing. No cyanosis. Neurological: The patient is alert. She is oriented. She is following commands. LABORATORY: Glucose 128. Pending BMP. ASSESSMENT AND PLAN: 1. Parotid abscess, deep neck abscess status post incision and drainage on 09/11/2018. Continue with antibiotics. Vancomycin has been stopped, and we will continue with daptomycin now. Infectious Disease department on board, as well as ENT department. 2. History of atrial fibrillation, rate controlled. Continue with Eliquis as well. 3. History of Parkinson disease. Aware. Continue with same management. 4. Hypertension, stable. 5. History of congestive heart failure (CHF) with normal ejection fraction, well compensated. 6. Hyperlipidemia, stable. 7. Type 2 diabetes. Continue with the same treatment. Stable. 8. Gastroesophageal reflux disease (GERD). Continue with PPIs. 9. History of lung cancer in the past. Aware. 10. Hypokalemia. I will recheck the potassium level today again since it has been low for a few days. 11. Magnesium level has been normal x4. cc: Laron Salas MD
[2018-09-14 12:50] LABS: AGAP 8; BUN 6 mg/dL (8-22); CALCIUM 8.8 mg/dL (8.8-10.2); CHLORIDE 96 mmol/L (98-107); COSMO 276; CREATININE 0.4 mg/dL (0.5-0.9); ESTIMATED GFR > 60; GLUCOSE 114 mg/dL (70-104); POTASSIUM 3.3 mmol/L (3.5-5.1); SODIUM 139 mmol/L (136-145); TCO2 35 mmol/L (25-35)
[2018-09-14] MEDS: MORPHINE IV PRN (16:14)
[2018-09-14] MEDS: TYLENOL PO PRN (16:15)
[2018-09-14] MEDS: CUBICIN 400 MG in NS 100 ML IV SCH (17:05)
[2018-09-14] MEDS ORDERED: KLOR-CON PO ONE (18:32)
--- NOTE | 2018-09-14 19:05 | INFECTIOUS DISEASE PROGRESS NO ---
DATE: 09/14/2018 PRESENT ILLNESS: The patient is status post incision and drainage of a right parotid abscess and a right deep knee abscess. Cultures from the abscess grew methicillin-resistant Staph aureus. MEDICATIONS: The patient is receiving daptomycin. PHYSICAL EXAMINATION: Vital Signs: Temperature is 98.1, pulse 72, respirations 12, blood pressure 155/69. General: This is a chronically ill-appearing elderly female. She is in no acute distress. Head, Eyes, Ears, Nose and throat: The patient is very hard of hearing. She has a very large dressing around her whole head and jaw. The dressing is intact. Lungs: Clear to auscultation. Cardiovascular: Heart rate is irregular. Abdomen: Soft and not tender. Neurologic: The patient is awake. She can move her extremities. There is no tremor. Neurologic: The patient is awake. She can move her extremities. There is no tremor. Integument: No rash noted. LAB AND X-RAY STUDIES: Culture from the patient's abscess grew methicillin-resistant Staph aureus. Patient's creatinine is 0.4. GFR is greater than 60. ASSESSMENT AND PLAN: The patient is status post incision and drainage of the abscesses as mentioned above. She is on daptomycin now. I think the patient can be discharged tomorrow. I have obtained a prescription from the computer for doxycycline 100 mg p.o. every 12 hours for 10 days. I have requested that the patient have a followup appointment in my office in 10 days, also. COMORBIDITIES: She is elderly. She has diabetes mellitus, gastroesophageal reflux disease and tobacco abuse. The patient also has very poor oral hygiene. cc: Arvin Corrales MD
--- NOTE | 2018-09-14 19:37 | PROGRESS NOTE ---
DATE: 09/14/2018 DIAGNOSIS: Right parotid abscess. IMPRESSION: Slowly resolving right parotid abscess/cellulitis with methicillin- resistant Staphylococcus aureus. PHYSICAL EXAMINATION: Dressing was removed today. Posterior postauricular Axel drain is intact. Moderate amount of drainage is noted on the bandages. The wound closure, which was loosely closed at the time of surgery is gapping a little bit, which is reasonable to expect the infection to drain out. The tissues of the ear, the earlobe and the flap are viable. Swelling maybe down somewhat compared yesterday. PLAN: She is currently off vancomycin and on cubicin IV. There seems to be slow daily progress towards resolution. She is eating now. She says her pain is less, but I am not sure if she is really understanding fully day-to-day progress. It is possible that this cellulitis and microabscesses throughout the parotid into the deep lobe may resolve with time, but she is going to need several days more of an antibiotic to help resolve this given the extent of the initial infection which involved the deep lobe of the parotid and infratemporal fossa. I think it is definitely in her best interest to stay in the hospital for close monitoring given the immune system issues and her current debilitated state. We will continue to monitor daily and change dressings. cc: Wyatt Mora MD MTDD
[2018-09-14] MEDS: DESYREL PO SCH (20:11)
[2018-09-14] MEDS: KLONOPIN PO SCH (20:13)
[2018-09-14] MEDS: ZANTAC PO SCH (20:13)
[2018-09-15] MEDS: CIPRODEX OTIC SUSPENSION RIGHT EAR SCH ×3 (00:21→20:16)
[2018-09-15] MEDS: MORPHINE IV PRN ×3 (03:37→11:44)
[2018-09-15] MEDS: DUONEB (A & A) INH SCH ×4 (03:51→22:40)
[2018-09-15] MEDS: HUMALOG SUBQ SCH ×4 (06:22→20:15)
[2018-09-15 07:28] LABS: AGAP 7; BUN 7 mg/dL (8-22); CALCIUM 8.8 mg/dL (8.8-10.2); CHLORIDE 99 mmol/L (98-107); COSMO 281; CREATININE 0.4 mg/dL (0.5-0.9); ESTIMATED GFR > 60; GLUCOSE 125 mg/dL (70-104); POTASSIUM 3.4 mmol/L (3.5-5.1); SODIUM 141 mmol/L (136-145); TCO2 35 mmol/L (25-35)
[2018-09-15] MEDS: PRILOSEC PO SCH (08:29)
[2018-09-15] MEDS: DITROPAN PO SCH ×2 (08:30→20:15)
[2018-09-15] MEDS: ELIQUIS PO SCH ×2 (08:30→20:15)
[2018-09-15] MEDS: LOPRESSOR PO SCH ×2 (08:31→20:15)
[2018-09-15] MEDS: CARDIZEM PO SCH (08:31)
[2018-09-15] MEDS: PAXIL PO SCH (08:31)
[2018-09-15] MEDS: LANOXIN PO SCH (08:32)
[2018-09-15] MEDS: SINEMET 25/100 PO SCH ×3 (08:33→18:36)
[2018-09-15] MEDS: NS 1,000 ML IV SCH (08:44)
[2018-09-15] MEDS: ADVAIR 250/50 DISKUS INH SCH (09:44)
[2018-09-15] MEDS ORDERED: KLOR-CON PO ONE (11:46)
--- NOTE | 2018-09-15 15:29 | PROGRESS NOTE ---
DATE: 09/15/2018 SUBJECTIVE: This patient is still having some pain at the level of the right side of the face and today she is complaining of some throat soreness. I evaluated her throat and I did not see any lesion, but we will monitor. The patient was evaluated by the ENT Department yesterday who suggested to keep the patient with IV antibiotics in the hospital and monitor her wound. OBJECTIVE: Vital Signs: Temperature 97.7 degrees, pulse 85, respiratory rate 24, blood pressure 135/78, oxygen saturation 98 on room air. HEENT: Head normocephalic. No trauma. PERRLA. She does have a dressing around her head, especially the right side of the face including her ear. I do not see any drainage right now. Neck: Supple. No JVD. Central trachea. Chest: Clear to auscultation. No wheezing. No rales. Abdomen: Soft, nontender, nondistended. No hepatosplenomegaly. Extremities: No edema. No clubbing. No cyanosis. Neurological: The patient is alert. She is oriented x3. She is following commands. LABORATORY: Sodium 141, potassium 3.4, chloride 99, bicarbonate 35, BUN 7 creatinine 0.4, glucose 125, calcium 8.8. ASSESSMENT AND PLAN: 1. Parotid abscess, deep neck abscess status post incision and drainage on 09/11/2018. We will continue with antibiotics. The patient was evaluated by the ENT Department yesterday. They have suggested to continue with several days more of antibiotics to help resolve this given the extent of the initial infection which involved the deep lobe of the parotid and infratemporal fossa. ENT Department believes that it is definitely in her best interest to stay in the hospital for close monitoring given the immune system issues and her generalized weakness. They will monitor this patient on a daily basis and change the dressing. 2. History of atrial fibrillation, rate controlled. Continue with Eliquis as well. 3. History of Parkinson disease. Aware. Continue with same management. 4. Hypertension, stable. 5. History of congestive heart failure with normal ejection fraction, well-compensated. 6. Hyperlipidemia, stable. 7. Type 2 diabetes. Continue with the same management. Stable. 8. Gastroesophageal reflux disease. Continue with PPIs. 9. History of lung cancer in the past. Aware. 10. Hypokalemia. I have replaced the potassium already. Magnesium level has been normal. 11. Tobacco abuse. This patient has been highly advised against tobacco use. I will continue with daily cessation education. cc: Laron Salas MD
[2018-09-15 15:45] LABS: URINE SOURCE CLEAN CATCH
[2018-09-15 15:49] LABS: BILIRUBIN URINE NEGATIVE (NEGATIVE); BLOOD URINE SMALL (NEGATIVE); COLOR YELLOW; GLUCOSE URINE NEGATIVE (NEGATIVE); KETONE URINE NEGATIVE (NEGATIVE); LEUKOCYTES URINE NEGATIVE (NEGATIVE); NITRITE URINE NEGATIVE (NEGATIVE); PROTEIN URINE 50 mg/dL (NEGATIVE); SP GRAVITY URINE 1.007; TURBIDITY URINE CLEAR (CLEAR); UROBILINOGEN URINE NORMAL (NORMAL)
[2018-09-15 15:52] LABS: UR EPITHELIAL CELLS <10 /HPF (<10); URINE BACTERIA NEGATIVE /HPF; URINE RBC <10 /HPF (<10); URINE WBC <10 /HPF (<10)
[2018-09-15 16:20] LABS: URINE CASTS NONE SEEN; URINE CRYSTALS NONE SEEN; URINE YEAST NONE SEEN
[2018-09-15 16:21] LABS: URINE SMALL ROUND CELLS NONE SEEN
[2018-09-15] MEDS: CUBICIN 400 MG in NS 100 ML IV SCH (18:36)
--- NOTE | 2018-09-15 19:02 | INFECTIOUS DISEASE PROGRESS NO ---
DATE: 09/15/2018 PRESENT ILLNESS: Ms. Navas is status post incision and drainage of a right parotid abscess and deep neck abscess. Cultures from her right ear are growing methicillin- resistant Staphylococcus aureus. MEDICATIONS: She is receiving daptomycin 400 mg IV every 24 hours. PHYSICAL EXAMINATION: Vital Signs: Temperature is 98.1 degrees, pulse rate 77 , respiratory rate 20, blood pressure 133/79 O2 saturation 97% on room air. General: This is a chronically ill- appearing, elderly female. She is lying in bed, currently in no acute distress. HEENT: She is hard of hearing. There is a large bulky dressing around her head and jaw, with swelling noted to the right side of her face. The dressing is clean, dry and intact without any drainage noted. Oral mucous membranes are pink and moist. She does have very poor dentition with dental caries noted. Conjunctivae are pink. Neck: Supple. Trachea is midline. Cardiovascular: Irregularly irregular with atrial fibrillation and occasional pacers spikes on the monitor. Respiratory: Lung sounds are clear to auscultation in the upper lobes. Diminished in the bases. Abdomen: Soft, round and nontender. Bowel sounds are active. Neurologic: She is awake , alert, and appropriate. Able to move all her extremities with some generalized weakness in the bed. Parkinsonian tremors noted. LABORATORY AND X-RAY: No CBC today but her creatinine is 0.4, estimated GFR is greater than 60. Urinalysis shows no bacteria and less than 10 WBCs. Her right ear culture grew methicillin- resistant Staphylococcus aureus. Blood cultures have shown no growth after 5 days. No imaging reports today. ASSESSMENT AND PLAN: Ms. Navas is being treated for a right parotid abscess as well as a right deep neck abscess which has grown methicillin-resistant Staphylococcus aureus. For now, we will continue her IV daptomycin as ordered. There were some tentative plans to send her home on doxycycline. Those have been put on hold and we will, discharge her when the ENT believes that it is appropriate. These plans have been discussed with and recommended by Dr. Corrales. COMORBIDITIES: For Ms. Navas include that she is elderly with diabetes mellitus , gastroesophageal reflux disease, tobacco abuse and poor dental hygiene. Dictated by JAYSON Blancas for Arvin Corrales MD This chart was documented by, JAYSON Blancas and accurately reflects the services performed, treatment plan and medical decisions as attested by the providers signature Arvin Corrales MD. cc: Arvin Corrales MD [facility]
[2018-09-15] MEDS: ZANTAC PO SCH (20:15)
[2018-09-15] MEDS: DESYREL PO SCH (20:15)
[2018-09-15] MEDS: KLONOPIN PO SCH (21:08)
[2018-09-16] MEDS: MORPHINE IV PRN ×4 (00:33→22:08)
[2018-09-16] MEDS: NS 1,000 ML IV SCH ×2 (00:35→14:34)
[2018-09-16] MEDS ORDERED: LANOXIN IV ONE (01:58)
[2018-09-16] MEDS ORDERED: CARDIZEM IV ONE ×2 (01:59→02:30)
[2018-09-16] MEDS: DUONEB (A & A) INH SCH ×4 (03:56→21:06)
[2018-09-16] MEDS: PRILOSEC PO SCH ×2 (05:57→06:06)
[2018-09-16] MEDS: HUMALOG SUBQ SCH ×4 (06:16→22:07)
[2018-09-16 08:15] LABS: AGAP 2; BUN 9 mg/dL (8-22); CALCIUM 9.3 mg/dL (8.8-10.2); CHLORIDE 98 mmol/L (98-107); COSMO 279; CREATININE 0.4 mg/dL (0.5-0.9); ESTIMATED GFR > 60; GLUCOSE 113 mg/dL (70-104); MAGNESIUM 1.8 mg/dL (1.5-2.7); POTASSIUM 3.4 mmol/L (3.5-5.1); SODIUM 140 mmol/L (136-145); TCO2 40 mmol/L (25-35)
[2018-09-16 08:17] LABS: BASO# 0.01 X1000 (0.0-0.2); BASO% 0.1 % (0.0-0.8); EOS# 0.08 X1000 (0.0-0.7); EOS% 0.8 % (0.0-10.0); HEMATOCRIT 38.3 % (37.0-47.0); HEMOGLOBIN 12.5 g/dL (12.0-16.0); IMM GRAN# 0.04 X1000 (0.0-0.04); IMM GRAN% 0.4 % (0.0-0.5); LYMPH# 3.16 X1000 (1.2-3.4); LYMPH% 31.6 % (20.5-51.1); MCHC 32.6 g/dL (33-37); MONO# 1.04 X1000 (0.11-0.59); MONO% 10.4 % (1.7-9.3); NEUT# 5.67 X1000 (1.4-6.5); NEUT% 56.7 % (42.2-75.2); PLT 330 X1000 (130-400); RBC 4.03 XMIL (4.2-5.4); RDW 13.2 % (11.5-14.5)
[2018-09-16] MEDS: LOPRESSOR PO SCH ×2 (08:25→22:07)
[2018-09-16] MEDS: DITROPAN PO SCH ×2 (08:25→22:07)
[2018-09-16] MEDS: LANOXIN PO SCH (08:25)
[2018-09-16] MEDS: ELIQUIS PO SCH ×2 (08:25→22:06)
[2018-09-16] MEDS: SINEMET 25/100 PO SCH ×3 (08:25→17:22)
[2018-09-16] MEDS: CARDIZEM PO SCH (08:25)
[2018-09-16] MEDS: PAXIL PO SCH (08:26)
[2018-09-16] MEDS ORDERED: KLOR-CON PO ONE (09:32)
--- NOTE | 2018-09-16 10:11 | PROGRESS NOTE ---
DATE: 09/16/2018 SUBJECTIVE: This patient is still complaining of some pain at the level of the right side of the face. She has been tolerating p.o. Infectious disease department and ENT department on board. We will continue with IV antibiotics and monitoring her wound. OBJECTIVE: Vital Signs: Temperature 98.2 degrees, pulse 78, respiratory rate 22, blood pressure 147/76, oxygen saturation 98% on room air. HEENT: Head normocephalic. No trauma. PERRLA. She does have a dressing around her head, especially on the right side of the face including her ear. I do not see any drainage right now. Neck: Supple. No JVD. Central trachea. Chest: Clear to auscultation. No wheezing. No rales. Abdomen: Soft, nontender, nondistended. No hepatosplenomegaly. Extremities: No edema. No clubbing. No cyanosis. Neurological Examination: The patient is alert. She is oriented. She is following commands. She is moving all 4 extremities. Laboratory: WBC 10, hemoglobin 12.5, hematocrit 38.3, platelets 330,000. Sodium 140, potassium 3.4, chloride 98, bicarbonate 40, BUN 9, creatinine 0.4, glucose 113, calcium 9.3, magnesium 1.8. ASSESSMENT AND PLAN: 1. Parotid abscess, deep neck abscess status post incision and drainage on 09/11/2018. We will continue with antibiotics. Patient has been evaluated by the ears, nose, and throat department who suggested to keep the patient in the hospital with antibiotics, given the extent of the initial infection which involved the deep lobe of the parotid and infratemporal fossa. 2. Atrial fibrillation. She had an episode of rapid ventricular response during the night. It looks like she is on Cardizem-LA 300 mg by mouth daily instead of 60. We just clarified that with the pharmacy. I will put her back on this medication. 3. History of Parkinson's disease, aware. Continue with same management. 4. Hypertension, stable. 5. History of congestive heart failure with normal ejection fraction, well-compensated. 6. Hyperlipidemia, stable. 7. Type 2 diabetes. Continue with the same management. 8. Gastroesophageal reflux disease. Continue with proton pump inhibitors. 9. History of lung cancer in the past, aware. 10. Hypokalemia. I will replace the potassium today again. Magnesium level has been normal. 11. Tobacco use. This patient has been highly advised against tobacco use. I will continue with daily cessation education. 12. Physical deconditioning. As per the patient, she is not able to walk at home. I have requested an evaluation by physical therapy and occupational therapy. cc: Laron Salas MD
[2018-09-16] MEDS: CIPRODEX OTIC SUSPENSION RIGHT EAR SCH ×2 (10:57→22:08)
[2018-09-16] MEDS: ADVAIR 250/50 DISKUS INH SCH (11:00)
[2018-09-16] MEDS: CUBICIN 400 MG in NS 100 ML IV SCH (17:29)
[2018-09-16] MEDS: ZANTAC PO SCH (22:07)
[2018-09-16] MEDS: KLONOPIN PO SCH (22:07)
[2018-09-16] MEDS: DESYREL PO SCH (22:07)
[2018-09-17] MEDS: MORPHINE IV PRN ×4 (03:19→22:16)
[2018-09-17] MEDS: NS 1,000 ML IV SCH ×3 (03:19→16:56)
[2018-09-17] MEDS: DUONEB (A & A) INH SCH ×4 (03:38→21:50)
[2018-09-17] MEDS: HUMALOG SUBQ SCH ×4 (06:34→21:45)
[2018-09-17] MEDS: PRILOSEC PO SCH (06:35)
[2018-09-17 07:05] LABS: BASO# 0.01 X1000 (0.0-0.2); BASO% 0.1 % (0.0-0.8); EOS# 0.12 X1000 (0.0-0.7); EOS% 1.3 % (0.0-10.0); HEMATOCRIT 40.9 % (37.0-47.0); HEMOGLOBIN 13.4 g/dL (12.0-16.0); IMM GRAN# 0.03 X1000 (0.0-0.04); IMM GRAN% 0.3 % (0.0-0.5); LYMPH# 2.73 X1000 (1.2-3.4); LYMPH% 30.5 % (20.5-51.1); MCHC 32.8 g/dL (33-37); MCV 94.7 FL (81-99); MONO# 1.02 X1000 (0.11-0.59); MONO% 11.4 % (1.7-9.3); MPV 8.9 FL (7.4-10.4); NEUT# 5.03 X1000 (1.4-6.5); NEUT% 56.4 % (42.2-75.2); PLT 323 X1000 (130-400); RBC 4.32 XMIL (4.2-5.4); RDW 13.3 % (11.5-14.5); WBC 8.94 X1000 (4.8-10.8)
[2018-09-17 07:32] LABS: AGAP 10; BUN 11 mg/dL (8-22); CALCIUM 9.3 mg/dL (8.8-10.2); CHLORIDE 100 mmol/L (98-107); COSMO 283; CREATININE 0.4 mg/dL (0.5-0.9); ESTIMATED GFR > 60; GLUCOSE 106 mg/dL (70-104); POTASSIUM 3.4 mmol/L (3.5-5.1); SODIUM 142 mmol/L (136-145); TCO2 32 mmol/L (25-35)
[2018-09-17] MEDS: PAXIL PO SCH (08:25)
[2018-09-17] MEDS: DITROPAN PO SCH ×2 (08:26→21:42)
[2018-09-17] MEDS: LOPRESSOR PO SCH ×2 (08:26→21:42)
[2018-09-17] MEDS: LANOXIN PO SCH (08:27)
[2018-09-17] MEDS: SINEMET 25/100 PO SCH ×3 (08:27→18:02)
[2018-09-17] MEDS: CARDIZEM CD PO SCH (08:28)
[2018-09-17] MEDS: ELIQUIS PO SCH ×2 (08:28→21:44)
[2018-09-17] MEDS: TYLENOL PO PRN (08:51)
[2018-09-17] MEDS: ADVAIR 250/50 DISKUS INH SCH (10:21)
[2018-09-17] MEDS: CIPRODEX OTIC SUSPENSION RIGHT EAR SCH ×2 (11:48→21:44)
--- NOTE | 2018-09-17 11:49 | PROGRESS NOTE ---
DATE: 09/17/2018 Patient see and examined today. Her wound looks much better, much less drainage. Axel drain removed. Also, several cheng were removed that were not supporting closure of the wound. Palpation of the neck is a little tender, but otherwise normal. The parotid gland appears normal. There is an opening in the incision probably 2 cm that looks clean. IMPRESSION: Status post deep neck abscess, incision and drainage. PLAN: I have discussed with Dr. Corrales and Dr. Benton. Will begin wound care teaching of the family this weekend and continue IV antibiotics for the weekend. She should be able to be discharged Thursday. She will need long-term home wound care and this should be accomplished in the next few days. At this time, there does not appear to be any. cc: Jasper Thurston MD
[2018-09-17] MEDS: KLOR-CON PO SCH (11:54)
--- NOTE | 2018-09-17 15:30 | PROGRESS NOTE ---
DATE: 09/17/2018 SUBJECTIVE: This patient is still complaining of some pain at the level of the right side of the face, I discussed the case with the ENT doctor at the bedside. We will continue for now with IV antibiotics during the weekend and likely we will discharge this patient next Thursday, we will continue with wound care at the bedside and we will try to teach the family how to clean the wound, wound care has been notified as well as the nurses. OBJECTIVE: Vital Signs: Temperature 97.9 degrees, pulse 78, respiratory rate 19, blood pressure 136/87, oxygen saturation 94 on room air. HEENT: Head normocephalic. No trauma. PERRLA. Neck: Supple. No JVD. No masses. Head normocephalic. No trauma. PERRLA. She does have a dressing around her head especially in the right side of the face that has been removed by the ENT doctor, the drain also has been removed. She has some serosanguineous secretion, also some whitish secretion but has been getting better. Central trachea. Chest: Clear to auscultation. No wheezing. No rales. Abdomen: Soft, nontender, nondistended. No hepatosplenomegaly. Extremities: No edema, no clubbing, no cyanosis. Neurological: The patient is alert. She is oriented x3. She is following commands. LABORATORY: WBC 8.9, hemoglobin 13.4, hematocrit 40.9, platelets 323,000, sodium 142, potassium 3.4, chloride 100, bicarbonate 32, BUN 11, creatinine 0.4, glucose 106, calcium 9.3, CK 17. ASSESSMENT AND PLAN: 1. Parotid abscess, deep neck abscess status post incision and drainage on 09/11/2018, continue with antibiotics during the weekend. Hopefully this patient can be discharged next Thursday. Wound care has been involved, we will try to teach the family how to clean the wound at home, ENT on board and following this patient closely. 2. Atrial fibrillation, continue with same management, stable. She had an episode of rapid ventricular response a couple nights ago but now is controlled. 3. History of Parkinson disease, aware. Continue with same management. 4. Hypertension stable. 5. History of congestive heart failure with normal ejection fraction, well-compensated. 6. Hyperlipidemia stable. 7. Type 2 diabetes. Continue with same management. 8. Gastroesophageal reflux disease. Continue with PPIs. 9. History of lung cancer in the past, aware. 10. Hypokalemia. I will replace the potassium again. Magnesium level has been normal. 11. Tobacco abuse. This patient has been highly advised against tobacco use. I will continue with daily cessation education. 12. Physical deconditioning. As per the patient, she has not been able to walk at home. I have requested an evaluation by physical therapy and occupational therapy. cc: Laron Salas MD
[2018-09-17] MEDS: CUBICIN 400 MG in NS 100 ML IV SCH (18:02)
[2018-09-17] MEDS: KLONOPIN PO SCH (21:42)
[2018-09-17] MEDS: DESYREL PO SCH (21:42)
[2018-09-17] MEDS: ZANTAC PO SCH (21:42)
--- NOTE | 2018-09-17 21:48 | INFECTIOUS DISEASE PROGRESS NO ---
DATE: 09/17/2018 PRESENT ILLNESS: The patient is status post incision and drainage of a right carotid abscess and a deep neck abscess. Cultures taken at surgery are growing methicillin-resistant Staph aureus. MEDICATIONS: The patient is on daptomycin 400 mg IV daily. This is day 4 of treatment with daptomycin. PHYSICAL EXAMINATION: Vital Signs: Temperature is 97.9 degrees, pulse 78, respirations 20, blood pressure 119/76. General: This is a chronically ill-appearing elderly female. She is in no acute distress. Head, eyes, ears, nose, and throat: She is hard of hearing, but she was able to carry on a conversation with me. She has a large bulky dressing around her head and jaw. She has no drainage coming from her nose and in her mouth she does not have any white patches on her tongue. The patient has necrotic teeth and many of them are barely above the gingiva. Neck: No meningismus. Thorax: The patient has an increased AP diameter. Lungs: Clear to auscultation. Cardiovascular: Heart rate is irregular. Abdomen: Soft and slightly tender to palpation. Neurologic: The patient is alert. She carries on an appropriate conversation. She can move all of her extremities. LAB AND X-RAY: CBC today shows a white count of 8940, hemoglobin 13.4, and platelet count of 323,000. Creatinine is 0.4. GFR is greater than 60. CK is 17. ASSESSMENT AND PLAN: I agree with Dr. Mora's plan to continue IV antibiotics over the weekend and then send the patient home on oral antibiotics and wound care. COMORBIDITIES: The patient has diabetes mellitus, gastroesophageal reflux disease, tobacco abuse, and poor dental hygiene. cc: Arvin Corrales MD
[2018-09-18] MEDS: MORPHINE IV PRN ×2 (01:17→13:55)
[2018-09-18] MEDS: DUONEB (A & A) INH SCH ×4 (03:53→22:38)
[2018-09-18] MEDS: NS 1,000 ML IV SCH ×2 (05:30→18:34)
[2018-09-18] MEDS: PRILOSEC PO SCH (05:30)
[2018-09-18] MEDS: HUMALOG SUBQ SCH ×4 (06:20→22:11)
[2018-09-18 08:13] LABS: AGAP 9; BUN 13 mg/dL (8-22); CALCIUM 9.6 mg/dL (8.8-10.2); CHLORIDE 101 mmol/L (98-107); COSMO 288; CREATININE 0.4 mg/dL (0.5-0.9); ESTIMATED GFR > 60; GLUCOSE 112 mg/dL (70-104); SODIUM 144 mmol/L (136-145); TCO2 34 mmol/L (25-35)
[2018-09-18] MEDS: PAXIL PO SCH (08:42)
[2018-09-18] MEDS: CIPRODEX OTIC SUSPENSION RIGHT EAR SCH ×2 (08:42→22:10)
[2018-09-18] MEDS: LANOXIN PO SCH (08:43)
[2018-09-18] MEDS: ELIQUIS PO SCH ×2 (08:43→22:09)
[2018-09-18] MEDS: SINEMET 25/100 PO SCH ×3 (08:43→18:34)
[2018-09-18] MEDS: KLOR-CON PO SCH (08:43)
[2018-09-18] MEDS: LOPRESSOR PO SCH ×2 (08:43→22:09)
[2018-09-18] MEDS: CARDIZEM CD PO SCH (08:43)
[2018-09-18] MEDS: DITROPAN PO SCH ×2 (08:43→22:09)
[2018-09-18] MEDS: ADVAIR 250/50 DISKUS INH SCH (09:05)
--- NOTE | 2018-09-18 15:58 | PROGRESS NOTE ---
DATE: 09/18/2018 SUBJECTIVE: No acute events overnight. No changes compared with yesterday. OBJECTIVE: Temperature 97.6 degrees, pulse 111, respiratory rate 16, blood pressure 95/54, oxygen saturation 99 on room air.HEENT: Head normocephalic. No trauma. PERRLA. She has a dressing covering around the lesion on the right side. I do not see any active bleeding or secretion. Neck: Supple. No JVD. Central trachea. Chest: Clear to auscultation. No wheezing. No rales. Abdomen: Soft, nontender, nondistended. No hepatosplenomegaly. Extremities: No edema. No clubbing. No cyanosis. Neurological: The patient is alert and oriented x3. No focal deficits but generalized weakness. LABORATORY: Sodium 144, potassium 4, chloride 101, bicarbonate 34, BUN 13, creatinine 0.4, glucose 112, calcium 9.6. ASSESSMENT AND PLAN: 1. Parotid abscess, deep neck abscess status post incision and drainage on 09/11/2018, continue with antibiotics during the weekend, and hopefully we will discharge this patient next Thursday. 2. Atrial fibrillation, continue with same management. 3. History of Parkinson's disease. Aware. 4. Hypertension, stable. 5. History of congestive heart failure with normal ejection fraction, well-compensated. 6. Hyperlipidemia, stable. 7. Type 2 diabetes. Continue with the same management. 8. Gastroesophageal reflux disease, continue proton pump inhibitors. 9. History of lung cancer in the past, aware. 10. Hypokalemia, resolved. 11. Physical deconditioning. As per the patient, she is not able to walk at home. Apparently, she is bed bound. I have requested an evaluation by physical therapy and occupational therapy. cc: Laron Salas MD
[2018-09-18] MEDS: CUBICIN 400 MG in NS 100 ML IV SCH (18:31)
[2018-09-18] MEDS: KLONOPIN PO SCH (22:09)
[2018-09-18] MEDS: DESYREL PO SCH (22:09)
[2018-09-18] MEDS: ZANTAC PO SCH (22:09)
[2018-09-19] MEDS: DUONEB (A & A) INH SCH ×4 (04:53→22:40)
[2018-09-19] MEDS: TYLENOL PO PRN (06:03)
[2018-09-19] MEDS: PRILOSEC PO SCH (06:03)
[2018-09-19] MEDS: HUMALOG SUBQ SCH ×4 (06:06→22:25)
[2018-09-19] MEDS ORDERED: BLISTEX MEDICATED BERRY LIP BALM TOP PRN (06:07)
[2018-09-19] MEDS: NS 1,000 ML IV SCH ×2 (08:53→22:25)
[2018-09-19] MEDS: PAXIL PO SCH (08:54)
[2018-09-19] MEDS: LANOXIN PO SCH (08:55)
[2018-09-19] MEDS: LOPRESSOR PO SCH ×2 (08:55→22:20)
[2018-09-19] MEDS: DITROPAN PO SCH ×2 (08:55→22:20)
[2018-09-19] MEDS: SINEMET 25/100 PO SCH ×3 (08:55→18:06)
[2018-09-19] MEDS: CARDIZEM CD PO SCH (08:55)
[2018-09-19] MEDS: ELIQUIS PO SCH ×2 (08:55→22:20)
[2018-09-19] MEDS: KLOR-CON PO SCH (08:55)
[2018-09-19] MEDS: CIPRODEX OTIC SUSPENSION RIGHT EAR SCH ×2 (09:24→22:21)
--- NOTE | 2018-09-19 09:26 | PROGRESS NOTE ---
DATE: 09/19/2018 SUBJECTIVE: No acute events overnight. No changes compared with yesterday. OBJECTIVE: Vital Signs: Temperature 98 degrees, pulse 71, respiratory rate 20, blood pressure 131/75, oxygen saturation 97% on room air. HEENT: Head normocephalic, no trauma. PERRLA. Poor dentition. She has a dressing covering the right side of the face with some mild serous material. Neck: Supple. No JVD. Central trachea. Chest: Clear to auscultation. No wheezing. No rales. Abdomen: Soft, nontender, nondistended. No hepatosplenomegaly. Extremities: No edema. No clubbing. No cyanosis. Neurological Examination: The patient is alert and oriented x3. Laboratory: No lab work done today. ASSESSMENT AND PLAN: 1. Parotid abscess, deep neck abscess, status post incision and drainage on 09/11/2018. Continue with antibiotics during the weekend and, hopefully, she will be discharged tomorrow. We will need to get the family to learn how to clean the wound, and follow up with an ears, nose, and throat physician as an outpatient. 2. Atrial fibrillation. Continue with the same management. 3. History of Parkinson's disease, aware. 4. Hypertension, stable. 5. History of congestive heart failure with normal ejection fraction, well-compensated. 6. Hyperlipidemia, stable. 7. Type 2 diabetes. Continue with the same management. 8. Gastroesophageal reflux disease. Continue with proton pump inhibitors. 9. History of lung cancer in the past, aware. 10. Hypokalemia, resolved. 11. Physical deconditioning. As per the patient, she is not able to walk at home. It looks like she is bedbound. I have requested an evaluation by physical therapy and occupational therapy. cc: Laron Salas MD
[2018-09-19] MEDS: ADVAIR 250/50 DISKUS INH SCH (10:11)
[2018-09-19] MEDS: CUBICIN 400 MG in NS 100 ML IV SCH (12:24)
[2018-09-19] MEDS: KLONOPIN PO SCH (22:20)
[2018-09-19] MEDS: ZANTAC PO SCH (22:20)
[2018-09-19] MEDS: DESYREL PO SCH (22:21)
[2018-09-20] MEDS: DUONEB (A & A) INH SCH ×2 (04:07→09:44)
[2018-09-20] MEDS: HUMALOG SUBQ SCH ×2 (06:03→11:11)
[2018-09-20] MEDS: PRILOSEC PO SCH (06:43)
[2018-09-20 07:14] LABS: BASO# 0.02 X1000 (0.0-0.2); BASO% 0.3 % (0.0-0.8); EOS# 0.07 X1000 (0.0-0.7); EOS% 0.9 % (0.0-10.0); HEMATOCRIT 38.5 % (37.0-47.0); HEMOGLOBIN 12.6 g/dL (12.0-16.0); LYMPH# 2.64 X1000 (1.2-3.4); LYMPH% 35.8 % (20.5-51.1); MCHC 32.7 g/dL (33-37); MCV 94.6 FL (81-99); MONO# 0.76 X1000 (0.11-0.59); MONO% 10.3 % (1.7-9.3); MPV 8.9 FL (7.4-10.4); NEUT# 3.89 X1000 (1.4-6.5); NEUT% 52.7 % (42.2-75.2); PLT 312 X1000 (130-400); RBC 4.07 XMIL (4.2-5.4); RDW 13.6 % (11.5-14.5); WBC 7.38 X1000 (4.8-10.8)
[2018-09-20 07:58] LABS: AGAP 10; BUN 6 mg/dL (8-22); CALCIUM 9.3 mg/dL (8.8-10.2); CHLORIDE 103 mmol/L (98-107); COSMO 285; CREATININE 0.4 mg/dL (0.5-0.9); ESTIMATED GFR > 60; GLUCOSE 104 mg/dL (70-104); POTASSIUM 3.4 mmol/L (3.5-5.1); SODIUM 144 mmol/L (136-145); TCO2 31 mmol/L (25-35)
[2018-09-20] MEDS ORDERED: KLOR-CON PO ONE (08:57)
[2018-09-20] MEDS: ADVAIR 250/50 DISKUS INH SCH (09:44)
[2018-09-20] MEDS: LOPRESSOR PO SCH (09:48)
[2018-09-20] MEDS: PAXIL PO SCH (09:48)
[2018-09-20] MEDS: SINEMET 25/100 PO SCH (09:48)
[2018-09-20] MEDS: DITROPAN PO SCH (09:48)
[2018-09-20] MEDS: ELIQUIS PO SCH (09:48)
[2018-09-20] MEDS: LANOXIN PO SCH (09:48)
[2018-09-20] MEDS: CARDIZEM CD PO SCH (09:48)
[2018-09-20] MEDS: CIPRODEX OTIC SUSPENSION RIGHT EAR SCH (09:49)
[2018-09-20] MEDS: KLOR-CON PO SCH (09:49)
[2018-09-20] MEDS: CUBICIN 400 MG in NS 100 ML IV SCH (11:11)
[2018-09-20] MEDS: NS 1,000 ML IV SCH (11:11)
[2018-09-20 11:38] VITALS: BP 149/72
--- NOTE | 2018-09-20 14:17 | INFECTIOUS DISEASE PROGRESS NO ---
DATE: 09/20/2018 SUBJECTIVE: The patient is being discharged today. She has methicillin-resistant Staph aureus abscesses. She is being discharged on doxycycline 100 mg p.o. every 12 hours. I have requested that the patient be seen in my office in 10 days. cc: Arvin Corrales MD
--- NOTE | 2018-09-21 13:44 | DISCHARGE SUMMARY ---
ADMISSION DATE: 09/09/2018 DISCHARGE DATE: 09/20/2018 DISCHARGE DIAGNOSES: 1. Parotid abscess, deep neck abscess, status post incision and drainage (I D) on 09/11/2018. 2. Atrial fibrillation. 3. History of Parkinson's disease. 4. Hypertension. 5. History of congestive heart failure (CHF) with normal ejection fraction. 6. Hyperlipidemia. 7. Type 2 diabetes. 8. Gastroesophageal reflux disease (GERD). 9. History of lung cancer in the past. 10. Hypokalemia, resolved. 11. Physical deconditioning. PROCEDURES PERFORMED: 1. Head CT dated 09/09/2018. Impression: No intracranial hemorrhage. Chronic microvascular ischemic changes. Marked right lateral facial soft tissue swelling. 2. CT of the neck with contrast dated 09/09/2018. Impression: Development of a large right parotid abscess. 3. Incision and drainage (I D) of the deep neck and parotid abscess dated 09/11/2018. Finding: Purulent exudate from parotid and deep neck space in the deep lobe of the parotid. CONSULTS: ENT Department, Dr. Mora. Infectious Disease Department, Dr. Corrales. HOSPITAL COURSE: A 73-year-old, female with a past medical history of Parkinson's, hypertension, diastolic heart failure, hyperlipidemia, type 2 diabetes, GERD, and lung cancer in the past came to the emergency department complaining of pain in her right face, ear with drainage within her ear as well as her right neck, admitted on 09/09/2018. Apparently she has been evaluated in the past due to a right-sided parotid mass. CT scan of the neck and head was completed and showed a development of the large right parotid abscess. The area was around 5.5 x 6 cm with extension to the deep right mandibular ramus. ENT Department contacted and they recommended admission and treatment with antibiotics and ear drops. Patient was transferred to the OR on 09/11/2018, where an I D of the deep neck and parotid abscess was performed, and the findings were a purulent exudate from the parotid and deep neck space in the deep lobe of the parotid. The patient tolerated well the procedure. We kept the patient on antibiotics and pain medication. As per the patient, she is basically bed bound. She states that she has not been able to walk at home for a very long time. During last week, the patient was evaluated after the procedure by Dr. Mora, who suggested to keep the patient with IV antibiotics for some days, then during the weekend she was evaluated again by ENT Department, who suggested to discharge this patient this Thursday, today. We have a right ear secretion that showed MRSA, and the patient was kept on antibiotics by Infectious Disease Department. Today this patient is feeling better. We have instructed the family about how to clean the area and keep it covered. She needs to follow with Dr. Mora this week and Dr. Corrales in 10 days. PHYSICAL EXAMINATION: Vital signs: Temperature 98 degrees, pulse 88, respiratory rate 16, blood pressure 149/72, oxygen saturation 99 on room air. HEENT: Head normocephalic. No trauma. PERRLA. Poor dentition. She has a dressing covering the right side of the face with some mild secretion. Neck: Supple. No JVD. Central trachea. Chest: Clear to auscultation. No wheezing. No rales. Abdomen: Soft, nontender, nondistended. No hepatosplenomegaly. Extremities: No edema. No clubbing. No cyanosis. Neurological: The patient is alert and oriented x3. Generalized weakness. LABORATORY DATA: WBC 7.3, hemoglobin 12.6, hematocrit 38.5, platelets 312,000. Sodium 144, potassium 3.4, chloride 103, bicarbonate 31, BUN 6, creatinine 0.4, glucose 104, calcium 9.3. FOLLOW-UP: 1. Follow up with Dr. Mora this week. She has an appointment on 09/22/2018 at 8:15 a.m. 2. Also follow up with Dr. Arvin Corrales on 09/29/2018 at 11:15 a.m. DISCHARGE INSTRUCTIONS: Again, the family has been instructed how to clean the wound and keep it clean and covered. DISPOSITION: She will be discharged with home health as well and wound care. DISCHARGE MEDICATIONS: 1. Diltiazem 300 mg p.o. daily. 2. Simvastatin 40 mg p.o. daily. 3. Ranitidine 150 mg p.o. at bedtime. 4. Paxil 30 mg p.o. daily. 5. Ditropan 5 mg p.o. b.i.d. 6. Omeprazole 40 mg p.o. daily. 7. Metoprolol 25 mg p.o. b.i.d. 8. Digoxin 125 mcg p.o. daily. 9. Sinemet 25/100, 1 tablet p.o. t.i.d. 10. Eliquis 5 mg p.o. b.i.d. 11. Trazodone 100 mg p.o. at bedtime. 12. Tramadol 50 mg p.o. q.8 h. as needed for pain. 13. Combivent Respimat inhaler. See dose instruction. 14. Advair Diskus 250/50 one puff inhaler daily. 15. Doxycycline 100 mg p.o. q.12 h. 16. Clonazepam 0.5 mg p.o. at bedtime. 17. Ciprodex otic suspension 2 drops in the right ear twice a day. COORDINATION TIME: Time discharging this patient 35 minutes. cc: Laron Salas MD
== END 2018-09-20 13:41 | disposition home health service (06) | DRG 137 ==
LOC: ED 15:10 → SUATTDRO 21:02 → 3N 21:02
PROVIDERS: ATTEND Internal Medicine
CPT/HCPCS: 70460; 70491; 71010; 71045; 80048; 80053; 81001; 82550; 82948; 83036; 83605; 83735; 83880; 84443; 84484; 85025; 85610; 85730; 87040; 87070; 87077; 87186; 93005; 94640; 94761; 96365; 96366; 96368; 96375; 97110; 97162; 97167; 97530; 97535; 99285; A9270; J0330; J0360; J0878; J1160; J1815; J1956; J2270; J2310; J2405; J3010; J3370; J3475; J3480; J7030; J7050; Q9967; XXXXX

== ENCOUNTER 2018-11-14 16:18 | Inpatient (IN) ==
[2018-11-14] MEDS ORDERED: ASPIRIN PO ONE (16:35)
[2018-11-14] MEDS ORDERED: NS 1,000 ML IV ONE ×2 (16:48→19:31)
[2018-11-14] MEDS ORDERED: LOPRESSOR 10 MG in NS 50 ML IV ONE (16:50)
[2018-11-14] MEDS ORDERED: NITROGLYCERIN SL ONE (16:56)
[2018-11-14 17:19] LABS: BASO# 0.02 X1000 (0.0-0.2); BASO% 0.2 % (0.0-0.8); EOS# 0.07 X1000 (0.0-0.7); EOS% 0.6 % (0.0-10.0); HEMATOCRIT 48.7 % (37.0-47.0); HEMOGLOBIN 16.9 g/dL (12.0-16.0); IMM GRAN# 0.04 X1000 (0.0-0.04); IMM GRAN% 0.3 % (0.0-0.5); LYMPH# 4.77 X1000 (1.2-3.4); LYMPH% 38.7 % (20.5-51.1); MCH 31.6 PG (27-31); MCHC 34.7 g/dL (33-37); MONO# 0.69 X1000 (0.11-0.59); MONO% 5.6 % (1.7-9.3); MPV 9.2 FL (7.4-10.4); NEUT# 6.72 X1000 (1.4-6.5); NEUT% 54.6 % (42.2-75.2); PLT 223 X1000 (130-400); RBC 5.35 XMIL (4.2-5.4); WBC 12.31 X1000 (4.8-10.8)
[2018-11-14 17:29] LABS: AGAP 12; ALB/GLOB RATIO 1.2; ALBUMIN 4.2 g/dL (3.5-5.0); ALKALINE PHOSPHATASE 121 U/L (32-104); BUN 12 mg/dL (8-22); CALCIUM 9.2 mg/dL (8.8-10.2); CHLORIDE 100 mmol/L (98-107); COSMO 281; CREATININE 0.5 mg/dL (0.5-0.9); ESTIMATED GFR > 60; GLUCOSE 100 mg/dL (70-104); GOT 18 U/L (10-30); GPT 11 U/L (10-36); POTASSIUM 3.9 mmol/L (3.5-5.1); SODIUM 141 mmol/L (136-145); TCO2 29 mmol/L (25-35); TOTAL BILIRUBIN 0.53 mg/dL (0.20-1.00); TOTAL PROTEIN 7.6 g/dL (6.3-8.3)
--- NOTE | 2018-11-14 18:54 | Diag Imaging Result Doc PS360 ---
CT ANGIOGRM PULMONARY ARTERIES - 11/14/2018 INDICATION: chest pain, respiratory distress TECHNIQUE: Axial CT images were obtained after administering intravenous contrast. Coronal MIP images were generated. COMPARISON: 03/01/2018 FINDINGS: There is no pulmonary embolism. Heart and great vessels are normal. There is a pacemaker. There is advanced COPD. Upper abdominal images are unremarkable. There are moderate degenerative changes of the spine. No acute or suspicious bony lesion. IMPRESSION: COPD. No acute disease. This exam was performed using automated exposure control, adjustment of mA or kV according to patient size, and/or use of iterative reconstruction technique Electronically signed by Tomer Hill 11/14/2018 6:52 PM
[2018-11-14 20:27] LABS: URINE SOURCE CATH
[2018-11-14 20:30] LABS: BILIRUBIN URINE NEGATIVE (NEGATIVE); BLOOD URINE SMALL (NEGATIVE); COLOR YELLOW; GLUCOSE URINE NEGATIVE (NEGATIVE); KETONE URINE NEGATIVE (NEGATIVE); LEUKOCYTES URINE TRACE (NEGATIVE); NITRITE URINE NEGATIVE (NEGATIVE); PH URINE 7.5; PROTEIN URINE TRACE mg/dL (NEGATIVE); TURBIDITY URINE CLEAR (CLEAR); UROBILINOGEN URINE NORMAL (NORMAL)
[2018-11-14 20:31] LABS: UR EPITHELIAL CELLS <10 /HPF (<10); URINE BACTERIA NEGATIVE /HPF; URINE RBC <10 /HPF (<10); URINE WBC <10 /HPF (<10)
[2018-11-14 22:52] LABS: INR 1.05; PROTIME 14.5 Seconds (11.0-16.0)
[2018-11-14 22:53] LABS: PTT 33.3 Seconds (22.3-41.8)
[2018-11-15] MEDS ORDERED: TYLENOL PO PRN (03:27)
[2018-11-15] MEDS ORDERED: ZOFRAN IV PRN (03:27)
[2018-11-15] MEDS ORDERED: DUONEB (A & A) INH PRN (05:56)
[2018-11-15 06:47] LABS: BASO# 0.01 X1000 (0.0-0.2); BASO% 0.1 % (0.0-0.8); EOS# 0.19 X1000 (0.0-0.7); EOS% 1.6 % (0.0-10.0); HEMATOCRIT 41.5 % (37.0-47.0); IMM GRAN# 0.03 X1000 (0.0-0.04); IMM GRAN% 0.3 % (0.0-0.5); LYMPH# 4.41 X1000 (1.2-3.4); MCH 31.6 PG (27-31); MCHC 33.7 g/dL (33-37); MCV 93.7 FL (81-99); MONO% 8.6 % (1.7-9.3); MPV 9.7 FL (7.4-10.4); NEUT# 5.98 X1000 (1.4-6.5); NEUT% 51.4 % (42.2-75.2); PLT 174 X1000 (130-400); RBC 4.43 XMIL (4.2-5.4); RDW 14.1 % (11.5-14.5); WBC 11.62 X1000 (4.8-10.8)
--- NOTE | 2018-11-15 07:16 | EKG Report ---
Test Performed on : 11/15/2018 06:55:07 AM Test Reason : chest pain Blood Pressure : / mmHG Vent. Rate : 065 BPM Atrial Rate : 065 BPM P-R Int : 172 ms QRS Dur : 096 ms QT Int : 420 ms P-R-T Axes : 030 082 -89 degrees QTc Int : 436 ms Sinus rhythm. with frequent ventricular-paced complexes ST & T wave abnormality, consider inferior ischemia ST & T wave abnormality, consider anterolateral ischemia Abnormal ECG When compared with ECG of 15-NOV-2018 00:31, (Unconfirmed) Vent. rate has increased BY 5 BPM Confirmed by Eliezer FERMIN, Akhil ([id number]) on 11/15/2018 9:01:33 AM
[2018-11-15 07:18] LABS: AGAP 10; BUN 11 mg/dL (8-22); CALCIUM 8.5 mg/dL (8.8-10.2); CHLORIDE 104 mmol/L (98-107); COSMO 282; CREATININE 0.5 mg/dL (0.5-0.9); ESTIMATED GFR > 60; GLUCOSE 93 mg/dL (70-104); POTASSIUM 3.3 mmol/L (3.5-5.1); SODIUM 142 mmol/L (136-145); TCO2 28 mmol/L (25-35)
--- NOTE | 2018-11-15 08:26 | EKG Report ---
Test Performed on : 11/14/2018 4:40:54 PM Test Reason : palpitations Blood Pressure : / mmHG Vent. Rate : 119 BPM Atrial Rate : 300 BPM P-R Int : 000 ms QRS Dur : 104 ms QT Int : 324 ms P-R-T Axes : 000 076 -51 degrees QTc Int : 455 ms Atrial fibrillation. with rapid ventricular response. with premature ventricular or aberrantly conduc jens complexes. Possible Inferior infarct , age undetermined ST & T wave abnormality, consider lateral ischemia Abnormal ECG When compared with ECG of 09-SEP-2018 15:27, Vent. rate has increased BY 39 BPM QRS duration has increased T wave inversion less evident in Lateral leads Unconfirmed Result
[2018-11-15] MEDS ORDERED: LANOXIN PO SCH (09:00)
[2018-11-15] MEDS ORDERED: CARDIZEM CD PO SCH (09:00)
[2018-11-15] MEDS ORDERED: PATIENT'S OWN MED PO SCH (09:00)
[2018-11-15] MEDS ORDERED: LOPRESSOR PO SCH ×2 (09:00→21:00)
--- NOTE | 2018-11-15 09:05 | EKG Report ---
Test Performed on : 11/14/2018 9:35:10 PM Test Reason : CP Blood Pressure : / mmHG Vent. Rate : 129 BPM Atrial Rate : 066 BPM P-R Int : 000 ms QRS Dur : 088 ms QT Int : 404 ms P-R-T Axes : 000 002 220 degrees QTc Int : 591 ms Atrial fibrillation. with rapid ventricular response. with premature ventricular or aberrantly conduc jens complexes. Low voltage QRS ST & T wave abnormality, consider inferior ischemia ST & T wave abnormality, consider anterolateral ischemia Abnormal ECG When compared with ECG of 14-NOV-2018 16:40, (Unconfirmed) Borderline criteria for Inferior infarct are no longer present T wave inversion less evident in Anterior leads T wave inversion more evident in Lateral leads Unconfirmed Result
[2018-11-15] MEDS: ELIQUIS PO SCH ×2 (09:33→22:05)
[2018-11-15] MEDS: ZOCOR PO SCH (09:33)
[2018-11-15] MEDS: SINEMET 25/100 PO SCH ×3 (09:33→18:59)
[2018-11-15] MEDS: PAXIL PO SCH (09:34)
[2018-11-15] MEDS: DITROPAN PO SCH ×2 (09:34→22:05)
--- NOTE | 2018-11-15 09:46 | EKG Report ---
Test Performed on : 11/15/2018 00:31:45 AM Test Reason : ED. NO EKG ORDER FOR MUSE Blood Pressure : / mmHG Vent. Rate : 060 BPM Atrial Rate : 277 BPM P-R Int : 000 ms QRS Dur : 186 ms QT Int : 484 ms P-R-T Axes : 000 -57 119 degrees QTc Int : 484 ms Ventricular-paced rhythm Abnormal ECG When compared with ECG of 14-NOV-2018 21:35, (Unconfirmed) Electronic ventricular pacemaker has replaced Atrial fibrillation. Vent. rate has decreased BY 69 BPM Unconfirmed Result
[2018-11-15] MEDS: KLOR-CON PO SCH ×2 (13:59→18:58)
--- NOTE | 2018-11-15 14:40 | HISTORY AND PHYSICAL ---
PRIMARY CARE PROVIDER: Dr. Lizeth Zambrano. PLANER MILL GRADER: Dr. Paez. CHIEF COMPLAINT: Chest pain, palpitations, shortness of breath, and dizziness. HISTORY OF PRESENT ILLNESS: Ms. Navas is a 73-year-old, female with a past medical history most notable for Parkinson's, hypertension, diastolic heart failure, hyperlipidemia, diabetes mellitus type 2, GERD, lung cancer, and paroxysmal atrial fibrillation. She reports that 2 hours prior to arrival to the ER today, she began having chest pressure. She stated that "she felt as though something was sitting on her chest". She denied any radiation of this pain. She reports associated symptoms of shortness of breath, dizziness, a brief period of diaphoresis, and nausea. EMS was called to bring her to the hospital. They did give her nitroglycerin. The patient states that her chest pain has resolved completely and has not returned since being given nitroglycerin. The patient does have a history of paroxysmal atrial fibrillation. She does have a pacemaker placed as well. Upon arrival to the ER, the patient did appear to be in atrial fibrillation, though her EKGs, unfortunately secondary to her Parkinson's and her shaking, do have quite a bit of artifact noted. The rhythm is irregularly irregular. The EKGs documented a possible rate in the 120s to 110s, though the nurse's report states that the pulse rate when counted was in the 80s. The elevated heart rate being reported on EKGs and the bedside monitor may have been related to her shaking and artifact. They did consider giving her a dose of Lopressor, though this was not administered and since that time, the patient had maintained a heart rate in the 60s and 70s. Repeat EKG performed at the time of my assessment did show a ventricular paced rhythm at a rate of 60. The patient is alert and oriented to person, place, time, and situation. She does have Parkinson's and does have some lower extremity weakness. The patient states that she has been essentially bedbound for quite some time, though he is receiving home physical therapy. They have been working with her on her strength. She did report some dizziness, as previously mentioned, with her chest pain, though this has subsided at this time. She is denying any active chest pain. She reports some shortness of breath with chest pain but this has resolved as well. The patient did have nausea and this has resolved also. She is denying any abdominal pain. She denies any vomiting or diarrhea. She denies any dysuria or urinary frequency. She denies any pain or swelling in extremities. Upon evaluation in the ER, she was found to have some mild leukocytosis with a white blood cell count of 12,310. Chemistries were pretty unremarkable. Troponin was negative at less than 0.01. She had a slightly elevated proBNP of 1033, though they did perform a CT angiogram of the pulmonary arteries which showed findings of COPD. There was no pulmonary embolism noted. There was no acute disease identified per radiology. The patient will be placed on the medical floor for further treatment and evaluation of her chest pain and palpitations. REVIEW OF SYSTEMS: A 14 point review of systems was conducted with the patient. All were negative except for pertinent positives mentioned above in the HPI. PAST MEDICAL HISTORY: 1. Atrial fibrillation, on chronic anticoagulation with Eliquis. 2. Parkinsonism. 3. Hypertension. 4. Hyperlipidemia. 5. Chronic diastolic heart failure. 6. COPD. 7. Depression. 8. Anxiety. 9. Diabetes mellitus type 2. 10. Gastroesophageal reflux disease. 11. Nicotine dependence. 12. History of lung cancer. PAST SURGICAL HISTORY: 1. Cholecystectomy. 2. Lung biopsy. 3. A left upper lobectomy. 4. Cataract removal. 5. Pacemaker placement. 6. Back surgery. 7. Recent surgery for parotid abscess and a deep neck abscess, status post incision and drainage on 09/11/2018 which was found to be positive for MRSA. SOCIAL HISTORY: The patient does report she still smokes approximately 3 cigarettes a day. She has smoked cigarettes for greater than 50 years. There is no known alcohol or illicit drug use. The patient does live at home. She reports that she is essentially bedbound, though does get up with a wheelchair. She does have physical therapy that comes out of the house and works with her. FAMILY HISTORY: Negative for any history of cardiac disease, COPD, or breast cancer. ALLERGIES: Patient has no known allergies. HOME MEDICATION: 1. Eliquis 5 mg p.o. b.i.d. 2. Sinemet 25/100 mg tablet 1 tablet p.o. t.i.d. 3. Digoxin 125 mcg p.o. daily. 4. Cardizem-LA 300 mg p.o. daily. 5. Metoprolol 25 mg p.o. b.i.d. 6. Mirtazapine 7.5 mg p.o. at bedtime. 7. Ditropan 5 mg p.o. b.i.d. 8. Paxil 30 mg p.o. q.a.m. 9. Rythmol extended release 425 mg p.o. b.i.d. 10. Zantac 100 mg p.o. at bedtime. 11. Zocor 40 mg p.o. daily. DIAGNOSTIC DATA/LABORATORY RESULTS: White blood cell count is 12,310, hemoglobin 16.9, hematocrit 48.7, platelet count is 223,000. PTT 14.5, INR 1.05, PTT is 33.3. Sodium 141, potassium 3.9, chloride 100, serum bicarb of 29, BUN 12, creatinine 0.5, glucose 100, calcium 9.2. Liver function tests were within normal limits except for alkaline phosphatase was slightly elevated at 121. Troponin less than 0.01 with a repeat that was negative as well at 0.01. ProBNP is 1033. Digoxin level is 0.7. Urinalysis obtained showed trace protein and blood, and trace leukocytes. It was negative for glucose, ketones, nitrites, white blood cells, or bacteria. Initial EKGs in the ER did state that she was in atrial fibrillation, though there is quite a bit of artifact noted. It does appear to be irregularly irregular, though I do not know if the rate was reporting as correct. The patient's nurse who states at the time the EKGs were done, the monitor was showing that she was tachycardic, the pulse rate that was palpated and counted was in the 80s. Repeat EKG later on did show a ventricular paced rhythm at 60. CT angiogram of the pulmonary arteries showed COPD, though no acute abnormalities. There was no pulmonary embolism. PHYSICAL EXAMINATION: VITAL SIGNS: Temperature 98.4 degrees, heart rate 61, respirations 18, blood pressure is 125/81, oxygen saturation is [*] on room air. GENERAL: Ms. Navas is a pleasant, 73-year-old, female. She was resting on the ER stretcher. She was in no acute distress. She was alert and oriented x4. She was able to answer questions appropriately. HEENT: Head is atraumatic, normocephalic. Pupils equal, round, reactive to light, were 3 mm bilaterally and brisk. Oral mucosa was moist. Oropharynx was clear. NECK: Supple. Trachea midline. No JVD noted upon examination. CARDIOVASCULAR: The patient has S1-S2 present. No murmurs, gallops, or rubs appreciated. At this time, she does have a regular rate and rhythm. PULMONARY: Patient has symmetrical chest expansion bilaterally. Lung sounds in bilateral upper lung woods were clear, as well as left lung base, though she did have some slight crackles noted in the right lung field. The patient did previously receive 2 L normal saline bolus in the ER and does have a history of some mild heart failure. I am not sure if this might be the cause of her slight crackles that are noted at this time. The patient is not in any respiratory distress. Her CT, as previously mentioned, was negative for any acute findings other than COPD. ABDOMEN: Soft, nontender, nondistended. Bowel sounds are present in all 4 quadrants, were normoactive. EXTREMITIES: No cyanosis or edema noted. Pulse, motor, and sensory are intact in all extremities. Radial pulses and pedal pulses were 2+ bilaterally. INTEGUMENTARY: The patient's skin is pink, warm, and dry. She does have a small circular wound approximately the size of the end of a pencil eraser noted behind her ear, though this does appear to be healing. It does have a scab noted. It is not open. It does not have any warmth or drainage noted. It is slightly erythematous in color. NEUROLOGICAL: Patient is alert and oriented to person, place, time, and situation. She does have a tremor noted in bilateral upper extremities and occasionally a tremor noted in bilateral lower extremities. Other than this, she does appear to have any focal neurological deficits noted. ASSESSMENT AND PLAN: 1. Chest pain. The patient did have a brief period of chest pain approximately 2 hours prior to arrival to the emergency room. This was chest pressure in the center of her chest. It was nonradiating. It did resolve with administration of nitroglycerin and she has been chest pain free since arriving to the hospital. Cardiac enzymes have been negative at this time. We will repeat an electrocardiogram in the morning. We have placed a consult with Dr. Paez with cardiology and we will await their evaluation and further recommendations for management. 2. History of paroxysmal atrial fibrillation. As previously mentioned, the patient does appear to be in a paced rhythm at this time, is maintaining a rate in the 60s. Upon reviewing the patient's home medications, and what she has recently gotten filled as well, she does take a total of four medicines for rate control which include digoxin 125 mcg by mouth daily, diltiazem extended release 300 mg by mouth daily, metoprolol tartrate 25 mg by mouth twice a day, and Rythmol extended release 425 mg twice daily. Given the patient's heart rate at this time, we just want to confirm that the patient does take all four of these medicines. We have placed a request for the nurse to please contact Dr. Paez's office this morning. If unable to reach them, possibly tried contacting the pharmacy to verify that she still takes these medications and at these dosages. We will hold these until that time and continue to follow. She will be placed on continuous cardiac telemetry with vital signs every 4 hours. She will continue her Eliquis for anticoagulation as well. 3. History of congestive heart failure. She does not appear to be in exacerbation at this time. We will continue her regularly prescribed medications. 4. Parkinson's. We will continue her Sinemet. 5. History of chronic obstructive pulmonary disease. We have placed as needed DuoNeb treatments if needed. 6. Deep vein thrombosis prophylaxis will be provided with, as previously mentioned, Eliquis. Further orders and recommendations pending hospital course, diagnostic studies, and physician evaluation. Dictated by JAYSON Barnes for Petey Augustin MD cc: Petey Augustin MD
[2018-11-15] MEDS ORDERED: LANOXIN IV ONE (14:56)
--- NOTE | 2018-11-15 15:42 | PROGRESS NOTE ---
DATE: 11/15/2018 INTERVAL HISTORY: Ms. Navas was admitted with complaints of chest pain, felt as if something sitting on her chest when she was sitting by the side of her bed, associated shortness of breath, dizziness and a brief period of diaphoresis which relieved completely after sublingual nitroglycerin. She was also found to have ventricularly paced rhythm with atrial fibrillation on arrival. SUBJECTIVE: At the time of my evaluation, patient is lying down in the bed. Denies any complaints. She states she is now chest pain free. We discussed about my exam findings. I answered all of her questions. VITAL SIGNS: Suggest temperature of 98.5, pulse 77, respiratory rate 18, blood pressure 130/78, saturating 95% on 2 L nasal cannula. PHYSICAL EXAMINATION: Patient has Parkinson disease and has a resting tremor affecting bilateral upper and lower extremities. She does not appear in any acute distress.HEENT: Oral cavity is moist. Lungs: Air entry bilaterally equal. No wheezes, rhonchi or crackles. Cardiovascular: S1, S2 normal. No murmur, rub, or gallop. It appears irregularly irregular. She has a left- sided pacemaker. Abdomen: Soft, nontender. Extremities: No lower extremity edema. LABS: Suggestive of mild leukocytosis. Otherwise, normal hemoglobin, hematocrit, and platelet count. Hypokalemia which is being repleted. Troponins which have been negative. Urine culture no growth to date. IMAGING: Pulmonary arteriogram performed. Did not have any acute disease. However, patient was already taking Eliquis. ASSESSMENT AND PLAN: 1. Acute chest pain, which happened at rest, relieved by nitroglycerin, associated with shortness of breath. The patient did have coronary angiography in 2011, which only had a mild coronary artery disease with about 25% involvement of right coronary artery. Her EKG did not have ST elevations, though she did have frequently ventricularly paced rhythm. Her troponins have been negative. I will appreciate Cardiology recommendation if she would need further diagnostic evaluation. Meanwhile, I will continue patient on her home Eliquis and beta susan. 2. Paroxysmal atrial fibrillation status post pacemaker. Currently rate well controlled. The patient has been initiated on digoxin, diltiazem by Cardiology team and I will continue her Eliquis. 3. History of heart failure with preserved ejection fraction, currently not in any acute exacerbation. 4. Parkinson disease continue home carbidopa/levodopa. 5. Others. Continue home mirtazapine for insomnia, oxybutynin for neurogenic bladder, paroxetine for anxiety, simvastatin for hyperlipidemia, ranitidine for chronic GERD. 6. Disposition: The patient remains inside the hospital for cardiovascular monitoring. If she does not have any more chest pain episode, my plan would be to discharge her back home tomorrow unless further cardiovascular intervention is planned. Plan of care were discussed with her. I will call patient's daughter and inform her about this. cc: Edil Ta MD
--- NOTE | 2018-11-15 15:47 | CONSULTATION ---
DATE OF CONSULTATION: 11/15/2018 IMPRESSION: 1. Recurrent atrial fibrillation despite propafenone. 2. Paroxysmal atrial fibrillation. 3. Episode of chest discomfort with patient's clinical presentation as well as some associated palpitations. Consider possible angina related to elevated heart rate. Serial troponins normal. 4. Hypertensive cardiovascular disease with left ventricular diastolic dysfunction. 5. Parkinson disease. 6. Hyperlipidemia. 7. Type 2 diabetes mellitus. 8. Lung cancer. 9. Gastroesophageal reflux disease. 10. Status post recent parotid abscess drainage and deep neck abscess drainage in August this year with cultures positive for methicillin-resistant Staphylococcus aureus. RECOMMENDATIONS: 1. Telemetry observation. 2. Discontinue propafenone and hold beta-blockers with plans to transition to sotalol. 3. Dobutamine sestamibi study tomorrow. 4. Maintain anticoagulation with Eliquis. 5. Given patient's apparent debility, favor conservative cardiovascular management overall. HISTORY: This 73-year-old white female with past history of paroxysmal atrial fibrillation, mild coronary atherosclerosis, Parkinson disease, hypertensive cardiovascular disease with left ventricular diastolic dysfunction, COPD, type 2 diabetes mellitus and previous left upper lobectomy for lung cancer as well as more recent drainage of parotid abscess and deep neck abscess a few months ago, presented to the emergency room with complaints of nausea with subsequent chest pressure and some associated palpitations. She has been found to be in atrial fibrillation although her ECGs are somewhat difficult to interpret due to tremor artifact. It appears that her pacemaker switched to VVI pacing mode. She was hospitalized back in August and had drainage of parotid abscess and deep neck abscess. Cultures grew methicillin-resistant Staphylococcus aureus. She has continued on Eliquis for long-term anticoagulation as well as propafenone 425 mg p.o. b.i.d. using extended release preparation. Of late she has been debilitated from a physical standpoint. She ambulates with assistance only and very short distances. She essentially is near bedbound state. She is receiving some home physical therapy. PAST MEDICAL HISTORY: 1. Paroxysmal atrial fibrillation. 2. Mild coronary atherosclerosis by previous coronary angiography. 3. Parkinson disease. 4. Hypertension. 5. Hyperlipidemia. 6. Chronic diastolic heart failure. 7. Chronic obstructive pulmonary disease. 8. Depression/anxiety. 9. Type 2 diabetes mellitus. 10. Gastroesophageal reflux disease. 11. History of non-small cell lung cancer. Previous left upper lobectomy. 12. Status post surgery for parotid abscess and deep neck abscess with incision and drainage. Patient found to have methicillin-resistant Staphylococcus aureus underlying her infection. PAST SURGICAL HISTORY: Also includes cholecystectomy, cataract surgery, permanent pacemaker implant and unspecified back surgery. ALLERGIES: She has no known drug allergies. MEDICATIONS PRIOR TO ADMISSION: As listed. SOCIAL HISTORY: She lives at home with family. She still smokes perhaps 5 cigarettes a day. She has a long history of cigarette use. She does not use alcohol. FAMILY HISTORY: Negative for premature coronary disease. REVIEW OF SYSTEMS: Pulmonary: Noteworthy for chronic tendency for dyspnea. She has not had any recent cough. Gastrointestinal: Noteworthy for nausea in association with her current symptoms. Gastrointestinal otherwise negative. Constitutional: Negative. Remainder review of systems negative/noncontributory with 14 total systems reviewed. PHYSICAL EXAMINATION: General: This is a elderly white female who is thin in no distress. Resting tremor is evident bilaterally. Vital Signs: Blood pressure 130/78, heart rate 77, oxygen saturation 95% on nasal cannula oxygen. HEENT: Extraocular movements appear intact. Mucous membranes are moist. Neck: Supple without discernible jugular distention. There are no carotid bruits. Chest: Auscultation of the chest reveals diminished breath sounds bilaterally. Cardiac Exam: Reveals an irregular rate and rhythm without appreciable murmur or gallop. Abdomen: Soft. Bowel sounds are normal. Extremities: Without edema. Neurologic: Reveals her to be alert and fully responsive. Speech is fluent. She moves all 4 extremities equally well. Resting tremor is evident bilaterally. DATA: Initial ECG demonstrates prominent baseline tremor artifact. Rhythm is difficult to determine. Appears to be occasional PVCs. Followup ECG obtained very early this morning November 15 at 12:30 a.m. demonstrates ventricular-paced rhythm and atrial fibrillation underlying. Twelve-lead EKG this morning demonstrates sinus rhythm with first degree AV block and demand ventricular pacing. There still appears to be intermittent atrial fibrillation. Diffuse ST and T- wave abnormality is demonstrated probably due to digitalis effect. LABORATORY DATA: Includes a white blood cell count 11.62, hematocrit 41.5, hemoglobin 14.0, platelet count 174,000. Sodium 142, potassium 3.3, chloride 104, carbon dioxide 28, BUN 11, creatinine 0.5, glucose 93. Initial troponin less than 0.01. Followup troponin less than 0.01. Chest CT scan with contrast reports no evidence of pulmonary embolus. COPD is evident. No acute disease. cc: Nasir De La Cruz MD
[2018-11-15] MEDS: CARDIZEM PO SCH ×2 (18:50→22:05)
[2018-11-15] MEDS ORDERED: ELIQUIS PO SCH (21:00)
[2018-11-15] MEDS: REMERON PO SCH (22:05)
[2018-11-15] MEDS: ZANTAC PO SCH (22:05)
[2018-11-16] MEDS: CARDIZEM PO SCH ×4 (04:41→22:33)
[2018-11-16] MEDS ORDERED: DEXTROSE ONE (08:39)
[2018-11-16] MEDS ORDERED: DOBUTAMINE ONE (08:39)
[2018-11-16] MEDS ORDERED: LANOXIN PO SCH (09:00)
[2018-11-16] MEDS ORDERED: LEXISCAN ONE (09:20)
[2018-11-16] MEDS ORDERED: SODIUM CHLORIDE 0.9% 0 ML ONE (09:21)
[2018-11-16] MEDS: PAXIL PO SCH (10:00)
[2018-11-16] MEDS: DITROPAN PO SCH ×2 (10:00→22:33)
[2018-11-16] MEDS: ZOCOR PO SCH (10:00)
[2018-11-16] MEDS: SINEMET 25/100 PO SCH ×3 (10:00→19:28)
[2018-11-16] MEDS: ELIQUIS PO SCH ×2 (10:00→22:32)
--- NOTE | 2018-11-16 13:41 | PROVIDER DOCUMENTATION ---
This chart was entered by Emely Bishop Scribe, acting as scribe for Kristal Kumar MD. HPI-General Adult - General Chief Complaint: Chest Pain Stated Complaint: PALPITATIONS Time Seen by Provider: 11/14/18 16:35 Source: patient Allergies/Adverse Reactions: Patient Allergies Allergy/AdvReac Type Severity Reaction Status Date / Time No Known Allergies Allergy Verified 06/17/17 09:52 Home Medications: Home Medication List Medication Instructions Recorded Confirmed Last Taken Type Oxybutynin [Ditropan] 5 mg PO BID 06/10/14 11/15/18 11/13/18 History Apixaban [Eliquis] 5 mg PO BID 10/29/14 11/15/18 11/13/18 History Ranitidine HCl [Zantac] 150 mg PO HS 12/20/16 11/15/18 11/13/18 History SIMVAstatin [Zocor] 40 mg PO DAILY 12/20/16 11/15/18 11/13/18 History Metoprolol [Lopressor] 25 mg PO BID 10/07/17 11/15/18 11/13/18 History Carbidopa/Levodopa [Sinemet 25/100] 1 tab PO TID 03/01/18 11/15/18 11/13/18 History Digoxin 125 mcg PO DAILY 03/01/18 11/15/18 11/14/18 History Paroxetine [Paxil] 30 mg PO QAM 03/01/18 11/15/18 11/13/18 History Diltiazem HCl [Cardizem LA] 300 mg PO DAILY 09/16/18 11/15/18 11/14/18 History Mirtazapine 7.5 mg PO QHS 11/15/18 11/15/18 11/13/18 History Propafenone HCl [Propafenone HCl 425 mg PO BID 11/15/18 11/15/18 11/13/18 History ER] - History of Present Illness -Gen Adult Nature of Presenting Problems: Pt is 73/F presenting to ED w/ chest pressure and palpitations. Pt sts that she has some associated SOB and dizziness. 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 chest pain, central, pressure like, resolve with 1 tab nitroglycerin after few minutes. Hx of Parkinsons, HTN, A-fib and COPD. Patient haS PARKINSON DISEASE. Location of Pain/Injury: reports: chest Pain Radiation: reports: no radiation Quality of Pain: reports: pressure Onset/Duration: reports: 1-3 hours ago Timing: reports: still present Context/Activities at Onset: reports: none Modifying Factors: improves with: nothing Associated Symptoms: reports: chest pain (pressure). denies: arm pain, cough Similar Symptoms Previously?: No Recently seen or treated by another doctor?: No Review of Systems - Adult - REVIEW OF SYSTEMS - ADULT Constitutional: reports: no symptoms reported Eyes: reports: no symptoms reported Ears, Nose, Mouth & Throat: reports: no symptoms reported Cardiovascular: reports: chest pain, irregular heart rate Respiratory: reports: shortness of breath. denies: cough, wheezing Gastrointestinal: denies: abdominal pain, nausea, vomiting Genitourinary: reports: no symptoms reported Musculoskeletal: reports: no symptoms reported Integumentary: reports: no symptoms reported Neurological: denies: dizziness/vertigo, headache/migraines Psychiatric: reports: no symptoms reported Endocrine: reports: no symptoms reported Hematologic/Lymphatic: reports: no symptoms reported Allergic/Immunologic: reports: no symptoms reported All Other Systems: Reviewed and Negative Past History - Adult - PAST MEDICAL HISTORY-ADULT Review of Records: reports: Old Records Reviewed, Nursing Assessment Review, Medications Reviewed, Social history reviewed & non-contributory. Major Childhood Illnesses: reports: denies history Cardiovascular: reports: A-Fib, CHF, HTN, hyperlipidemia Respiratory: reports: asthma, COPD, cancer (lung) Gastrointestinal: reports: GERD Obstetrical/Gynecological: reports: denies history Genitourinary: reports: chronic UTI's Musculoskeletal: reports: chronic pain (back), neck/back injury Neurological: reports: denies history Endocrine/Immune: reports: denies history Other Conditions: reports: denies history - PRIOR SURGERIES/PROCEDURES Surgical/Procedure History: reports: cholecystectomy, other (tympanic membrane, cataract surgeries) - IMMUNIZATION STATUS Childhood Immunizations: See Nurse Assessment Flu Vaccine: See Nurse Assessment - FAMILY HISTORY Family History: reviewed, not pertinent - SOCIAL HISTORY Smoking: cigarettes, less than 1 pack/day Living Situation: family Physical Exam-General - PHYSICAL EXAM-ADULT Initial Vital Signs Reviewed: Yes - CONSTITUTIONAL General Appearance: appears well, alert, no apparent distress, other (pt is very shaky in upper bilat extremities due to Parkinsons) - EYES Eyes: PERRL/EOMI, pink conjunctivae - HEAD, EARS, NOSE, MOUTH & THROAT HENMT: normocephalic/atraumatic, normal ENT inspection, TMs normal, pharynx normal. negative: moist mucous membranes (dry) - NECK Neck: non-tender, full range of motion, supple, normal inspection - RESPIRATORY Respiratory: lungs clear - CARDIOVASCULAR Cardiovascular: irregularly irregular, other (faint pulse obtained to do tremors) - GASTROINTESTINAL (ABDOMEN) Abdominal Exam: normal bowel sounds, non tender, soft - LYMPHATIC Lymphatic: no adenopathy - MUSCULOSKELETAL Back Exam: normal inspection, no CVA tenderness, no vertebral tenderness Extremity: normal range of motion, non-tender, normal gait - SKIN Integumentary: normal color, warm/dry - NEUROLOGIC Neurologic: grossly normal - PSYCHIATRIC Psych/Mental Status: normal mood/affect, normal thought content, normal thought process, oriented x 3 Progress - PLAN OF CARE/RESULTS Progress/Plan/Lab Results: Vital Signs - 8 hr 11/14/18 17:01 Temperature 97.5 F L Pulse Rate 68 Respiratory Rate 20 Blood Pressure 110/80 O2 Sat by Pulse Oximetry 100 Orders Category Date Time Status CBC WITH ELECTRONIC DIFF [HEME] Stat Lab 11/14/18 17:00 Results CMP [COMPREHENSIVE METABOLIC PANEL] [CHEM] Stat Lab 11/14/18 17:00 Received TROPONIN T Stat Lab 11/14/18 17:00 Received URINALYSIS W/POSS RFLX CULT [URINALYSIS] Stat Lab 11/14/18 16:41 Uncollected 0.9% Sodium Chloride Inj [Ns] 1,000 ml Med 11/14/18 16:48 Active IV 999 mls/hr Aspirin Med 11/14/18 16:35 Discontinued 325 mg PO NOW ONE Metoprolol [Lopressor] 10 mg Med 11/14/18 16:50 Discontinued 0.9% Sodium Chloride Inj [Ns] 50 ml IV NOW Nitroglycerin Sl [Nitroglycerin] Med 11/14/18 16:56 Discontinued 0.4 mg SL NOW ONE EKG [EKG] Stat Ther 11/14/18 16:22 Ordered Patient has PARKINSON DISEASE, shaking, EKG showed alot of artifact, repeated twice in different time still shows artificat. No ST elevation or depression noted. Rhythm is irregularly irregular initially in 110s. Patient likely has demand ischemia from palpitation. still has rhythm problem despite being on multiple medication for this. need admission for observation and further management. Result Diagrams: 11/15/18 05:50 11/15/18 05:50 - EKG 1 Time of EKG reading by physician:: 16:28 EKG Read and Signed by:: Kristal Kumar EKG Interpretation (*Must complete 3 of following elements*): Abnormal (Undetermined rhythm, Later infarct, age undetermined ST&T wave abnormality, consider inferior ischemia. St&T wave abnormality, consider anterior ischemia. Abnormal ECG) Rate: 106 Rhythm: undetermined 2 Time of EKG reading by physician:: 16:40 EKG Read and Signed by:: Kristal Kumar EKG Interpretation (*Must complete 3 of following elements*): Abnormal (Atrial fibrillation with rapid ventricular response with premature ventricular or aberrantly conducted complexes. Possible Inferior infarct, age undetermined. ST&T wave abnormality, cosider lateral ischemia. Abnormal ECG) Rate: 119 Rhythm: Atrial Fibrillation [place]: normal QRS: normal - CONSULTS/PCP/HOSPITALIST Notification #1 *Consult/PCP/Hospitalist*: Dr. Petey Augustin Time Discussed: 22:21 Consult Disposition: Admit (Hx, PE and patient care discussed, accepted.) Departure - Departure Date of Disposition Decision: 11/14/18 Time of Disposition Decision: 22:21 DIAGNOSIS: Chest pain Qualifiers: Chest pain type: unspecified Qualified Code(s): R07.9 - Chest pain, unspecified Atrial fibrillation Qualifiers: Atrial fibrillation type: paroxysmal Qualified Code(s): I48.0 - Paroxysmal atrial fibrillation Disposition: ADMITTED INPATIENT 09 Certified Medical Emergency: Emergent Condition: Stable - Critical Care Note This patient required my direct & personal management of CC.: No Attestation - Physician/ ROBERTO Attestation Patient care was provided by Advanced Practice Provider:: No The physician spent face to face time with patient:: Yes Advanced Practice Provider documentation review:: Supervising physician onsite and consulted in the evaluation and care of this patient. The physician did have a face to face encounter with the patient. This chart was documented by the indicated scribe, (Emely Bishop Scribe) and accurately reflects the services I performed and decisions made by , Kristal Yan MD, as attested by the provider's signature.
--- NOTE | 2018-11-16 14:45 | PROGRESS NOTE ---
DATE: 11/16/2018 INTERVAL HISTORY: The patient underwent nuclear medicine stress test. The patient denies any chest pain. She says she was a little nauseous after receiving medicine for the stress test. She denies any more chest pain or shortness of breath. We discussed about her clinical course. I answered all of her questions. OBJECTIVE: Current Vital Signs: Temperature 97.8 degrees, pulse 99, respiratory rate 16, blood pressure 150/73, saturating 96% on 2 L nasal cannula. General: She has Parkinson's disease and has a resting tremor affecting bilateral upper and lower extremities. She does not appear in any acute distress. HEENT: Oral cavity is moist. Lungs: Air entry bilaterally equal. No wheeze, rhonchi, crackles. She does have significant protein energy malnutrition. Cardiovascular: S1, S2 normal. No murmur, rub, or gallop. Appears irregularly irregular. She has a left-sided pacemaker. Abdomen: Soft, nontender. Extremities: No lower extremity edema. Neurologic: She is alert and oriented x3. LABORATORY DATA: No CBC or BMP today. The urine culture is growing gram-positive cocci. However, the patient did not have any urinary symptoms, so this is asymptomatic bacteriuria. IMAGING: No new imaging today. ASSESSMENT AND PLAN: 1. Acute chest pain at rest, relieved by nitroglycerin, associated with shortness of breath. The patient has underwent a nuclear medicine stress test. I will follow up with the results. Her troponins have been negative. Continue home Eliquis and beta susan and simvastatin. 2. Paroxysmal atrial fibrillation, status post pacemaker. Currently well-controlled rate. Continue digoxin, diltiazem, and Eliquis as per Cardiology recommendation. She is not on beta susan at the moment. Appreciate Cardiology plans about starting her on sotalol. Propafenone has been discontinued as well. 3. Heart failure with preserved ejection fraction, currently not in acute exacerbation. Plan as mentioned above. 4. Others. Continue carbidopa/levodopa for Parkinson's disease, mirtazapine for insomnia, oxybutynin for neurogenic bladder, paroxetine for anxiety, ranitidine for chronic gastroesophageal reflux disease. 5. Disposition. The patient remains inside the hospital as we await nuclear medicine stress test results, and further cardiac workup based on that. I called the patient's daughter, who is surrogate decision maker, and informed her about the patient's clinical course and answered all of her questions. Plan of care discussed with her. cc: Edil Ta MD
--- NOTE | 2018-11-16 15:37 | Diag Imaging Result Document ---
PROCEDURE NAME: MYOCARDIAL PERF SCAN, STR/REST - 11/16/2018 LEXISCAN SESTAMIBI INTERPRETATION: SUMMARY: The patient was administered 10.1 mCi of technetium 99-m sestamibi after which resting cardiac images were obtained. The patient was subsequently administered Lexiscan 0.4 mg intravenously after which the heart rate went from 82 beats per minute to 125 beats per minute and the blood pressure went from 153/102 to 124/62. With Lexiscan, the patient denied chest discomfort. Following the administration of Lexiscan, the patient was administered 30.0 mCi of technetium-99m sestamibi, after which gated stress cardiac images were obtained. Baseline ECG demonstrated atrial fibrillation and nonspecific ST abnormality. With Lexiscan, baseline ST abnormality became more prominent with patient demonstrating approximately 1.0 to 1.[address]-segment depression in the lateral precordial leads. SPECT images were reconstructed in the short, horizontal long, and vertical long axes. Review of these images demonstrated homogeneous uptake of radiopharmaceutical in both stress and resting images. Gated images demonstrate a calculated left ventricular ejection fraction of 66% with symmetrical wall motion/thickening. CONCLUSIONS: 1. Adequate response to Lexiscan. 2. Clinically negative for chest pain. 3. Electrocardiographically suggestive of Lexiscan-induced myocardial ischemia, although specificity is limited given baseline ST abnormality. 4. Normal Lexiscan sestamibi images. cc: MD Morenita Spain PA
--- NOTE | 2018-11-16 17:03 | PROGRESS NOTE ---
DATE: 11/16/2018 SUBJECTIVE: Patient continues without chest discomfort or dyspnea. She remains in atrial fibrillation. OBJECTIVE: Blood pressure 125/81, heart rate 77, oxygen saturation 100% on nasal cannula oxygen. There is no significant jugular distention.Chest: Clear to auscultation bilaterally. Cardiac Exam: Reveals a irregular rate and rhythm without appreciable murmur or gallop. There is no evidence of peripheral edema. LABORATORY DATA: Includes magnesium 1.9. Lexiscan sestamibi study demonstrates no evidence of inducible myocardial ischemia. Normal left ventricular ejection fraction demonstrated. IMPRESSION: 1. Recurrent atrial fibrillation with history of paroxysmal atrial fibrillation. 2. Episode of chest discomfort with patient's clinical presentation. No evidence of myocardial insult on serial troponins. Lexiscan sestamibi study negative for evidence of inducible myocardial ischemia. 3. Mild coronary atherosclerosis by previous coronary angiography. 4. Hypertensive cardiovascular disease with left ventricular diastolic dysfunction. 5. Type 2 diabetes mellitus. 6. Hyperlipidemia. 7. Parkinson disease. RECOMMENDATIONS: 1. Continue anticoagulation with Eliquis. 2. Initiate sotalol 80 mg p.o. b.i.d. 3. Consider possible DOMINGUEZ cardioversion if patient remains in atrial fibrillation despite sotalol. We will consider this for a.m. if atrial fibrillation persists. cc: Nasir De La Cruz MD
[2018-11-16] MEDS: ZANTAC PO SCH (22:32)
[2018-11-16] MEDS: BETAPACE PO SCH (22:33)
[2018-11-16] MEDS: REMERON PO SCH (22:33)
[2018-11-17] MEDS: CARDIZEM PO SCH ×4 (06:54→22:21)
[2018-11-17 07:01] LABS: BASO# 0.02 X1000 (0.0-0.2); BASO% 0.2 % (0.0-0.8); EOS# 0.19 X1000 (0.0-0.7); EOS% 1.8 % (0.0-10.0); HEMATOCRIT 42.3 % (37.0-47.0); HEMOGLOBIN 14.4 g/dL (12.0-16.0); LYMPH# 3.45 X1000 (1.2-3.4); LYMPH% 33.2 % (20.5-51.1); MCH 31.8 PG (27-31); MCV 93.4 FL (81-99); MONO# 0.95 X1000 (0.11-0.59); MONO% 9.1 % (1.7-9.3); MPV 9.3 FL (7.4-10.4); NEUT# 5.79 X1000 (1.4-6.5); NEUT% 55.7 % (42.2-75.2); PLT 158 X1000 (130-400); RBC 4.53 XMIL (4.2-5.4)
[2018-11-17 07:10] LABS: AGAP 11; BUN 16 mg/dL (8-22); CHLORIDE 103 mmol/L (98-107); COSMO 286; CREATININE 0.5 mg/dL (0.5-0.9); ESTIMATED GFR > 60; GLUCOSE 89 mg/dL (70-104); MAGNESIUM 2.1 mg/dL (1.5-2.7); POTASSIUM 3.4 mmol/L (3.5-5.1); SODIUM 143 mmol/L (136-145); TCO2 29 mmol/L (25-35)
[2018-11-17] MEDS: BETAPACE PO SCH ×2 (08:47→22:20)
[2018-11-17] MEDS: PAXIL PO SCH (08:47)
[2018-11-17] MEDS: ZOCOR PO SCH (08:47)
[2018-11-17] MEDS: ELIQUIS PO SCH ×2 (08:47→22:20)
[2018-11-17] MEDS: DITROPAN PO SCH ×2 (08:48→22:20)
[2018-11-17] MEDS: SINEMET 25/100 PO SCH ×3 (09:59→17:49)
[2018-11-17] MEDS: KLOR-CON PO SCH ×2 (18:31→22:28)
--- NOTE | 2018-11-17 19:17 | PROGRESS NOTE ---
DATE: 11/17/2018 SUBJECTIVE: Patient continues without chest discomfort or dyspnea. She continues in atrial fibrillation. OBJECTIVE: Vital Signs: Blood pressure 128/76, heart rate 100, oxygen saturation 100%. Neck: There is no significant jugular venous distention. Chest: Clear to auscultation. Cardiac: Irregular rate and rhythm without appreciable murmur, rub, or gallop. There is no evidence of peripheral edema. DIAGNOSTIC DATA: 12-lead EKG is pending. Lab data includes a white blood cell count of 10.4, hematocrit 42.3, hemoglobin 14.4, platelet count 158,000. Sodium 143, potassium 3.4, chloride 103, carbon dioxide 29, BUN 16, creatinine 0.5, glucose 89, magnesium 2.1. IMPRESSION: 1. Recurrent atrial fibrillation. Patient has a history of paroxysmal atrial fibrillation. 2. Mild coronary atherosclerosis by previous coronary angiography. Stress myocardial perfusion study this admission is negative for evidence of inducible myocardial ischemia. 3. Hypertensive cardiovascular disease with left ventricular diastolic dysfunction. 4. Type 2 diabetes mellitus. 5. Hyperlipidemia. 6. Parkinson disease. RECOMMENDATIONS: 1. Continue sotalol 80 mg p.o. b.i.d. 2. Continue Eliquis 5 mg p.o. b.i.d. 3. If atrial fibrillation persists, will pursue transesophageal echocardiography cardioversion in a.m. tomorrow. This was discussed with the patient and she wished to proceed. cc: Nasir De La Cruz MD
--- NOTE | 2018-11-17 20:16 | PROGRESS NOTE ---
DATE: 11/17/2018 INTERVAL HISTORY: Patient was started on sotalol yesterday, which she has been tolerating well. Currently, she denies any new complaints. We discussed about her negative nuclear medicine stress test results. I answered all of her questions. VITALS: Detect a temperature 98.4, pulse 100, respiratory rate 20, blood pressure 128/76. Saturating 100% on room air. PHYSICAL EXAMINATION: General: Patient appears cachectic, not in any acute distress. She has Parkinson disease and has generalized tremulousness and tremors affecting all extremities at rest. HEENT: Oral cavity is moist. Respiratory: Air entry bilaterally with no wheeze, rhonchi, crackles. Cardiovascular: S1, S2 normal. No murmur, rub or gallop. She has irregularly irregular heart rhythm and she also has left-sided AICD or pacemaker. Abdomen: Soft, nontender. Extremities: No lower extremity edema. Neurologic: She is alert and oriented x 3. She is complaining of some right-sided popping sensation. However, my external ear examination and limited ear canal examination, I could not appreciate any blood or pus in the ear cavity. LABS: CBC is unremarkable. BMP has hypokalemia which is being repleted. No new microbiological data. Urine culture is growing Streptococcus agalactiae group B; however, patient was asymptomatic when she presented. ASSESSMENT AND PLAN: 1. Acute chest pain at rest, relieved by nitroglycerin, associated with shortness of breath on presentation. Nuclear medicine stress test had adequate response to Lexiscan. It was clinically negative for chest pain. There was electrocardiographically suggestive of Lexiscan- induced myocardial ischemia, although it was not specific given concern the patient had baseline ST-T abnormality. Currently she is chest pain free. Continue home Eliquis, beta susan and simvastatin. 2. Chronic atrial fibrillation status post pacemaker. She continues to have atrial fibrillation. Continue her on diltiazem and sotalol, with Eliquis. Cardiology is planning cardioversion tomorrow. 3. Heart failure with preserved ejection fraction, currently not in any acute exacerbation. Plan as mentioned above. 4. Others: Continue carbidopa/levodopa for Parkinson disease, mirtazapine for insomnia, oxybutynin for neurogenic bladder, paroxetine for anxiety, ranitidine for chronic GERD. I also advised patient to follow up with outpatient ENT doctor Dr. Yanez for her right ear popping sensation. 5. Disposition: The patient remains inside the hospital for need for cardioversion tomorrow. If the cardioversion is performed and the patient does not have any complaint, plan is to discharge her home. Plan of care discussed with the patient. Yesterday I had discussed plan with the patient's daughter and had answered all of her questions. cc: Edil Ta MD MTDD
[2018-11-17] MEDS: ZANTAC PO SCH (22:20)
[2018-11-17] MEDS: REMERON PO SCH (22:20)
[2018-11-18] MEDS: CARDIZEM PO SCH ×4 (03:57→21:50)
--- NOTE | 2018-11-18 07:26 | EKG Report ---
Test Performed on : 11/18/2018 07:06:32 AM Test Reason : atrial fibrillation Blood Pressure : / mmHG Vent. Rate : 071 BPM Atrial Rate : 326 BPM P-R Int : 000 ms QRS Dur : 082 ms QT Int : 406 ms P-R-T Axes : 000 072 -53 degrees QTc Int : 441 ms Atrial fibrillation. with occasional ventricular-paced complexes T wave abnormality, consider inferior ischemia T wave abnormality, consider anterolateral ischemia Abnormal ECG When compared with ECG of 17-NOV-2018 18:47, (Unconfirmed) Electronic ventricular pacemaker has replaced Atrial fibrillation. Confirmed by Eliezer FERMIN, Akhil ([id number]) on 11/18/2018 8:49:37 AM
--- NOTE | 2018-11-18 07:29 | EKG Report ---
Test Performed on : 11/17/2018 6:47:50 PM Test Reason : atrial fibrillation Blood Pressure : / mmHG Vent. Rate : 075 BPM Atrial Rate : 312 BPM P-R Int : 000 ms QRS Dur : 090 ms QT Int : 426 ms P-R-T Axes : 000 078 -78 degrees QTc Int : [address] & T wave abnormality, consider inferior ischemia ST & T wave abnormality, consider anterolateral ischemia Prolonged QT Abnormal ECG When compared with ECG of 15-NOV-2018 06:55, Atrial fibrillation. has replaced Electronic ventricular pacemaker Confirmed by Eliezer FERMIN, Akhil ([id number]) on 11/18/2018 8:47:17 AM
[2018-11-18] MEDS: ELIQUIS PO SCH ×2 (08:45→21:50)
[2018-11-18] MEDS: DITROPAN PO SCH ×2 (08:45→21:51)
[2018-11-18] MEDS: ZOCOR PO SCH (08:45)
[2018-11-18] MEDS: BETAPACE PO SCH ×2 (08:45→21:50)
[2018-11-18] MEDS: SINEMET 25/100 PO SCH ×4 (08:46→17:47)
[2018-11-18] MEDS: PAXIL PO SCH (08:46)
[2018-11-18] MEDS ORDERED: SODIUM CHLORIDE 0.9% 10 ML ONE (11:26)
[2018-11-18] MEDS ORDERED: XYLOCAINE 2% VISCOUS ONE (11:26)
[2018-11-18] MEDS ORDERED: XYLOCAINE-MPF 2% ONE (11:28)
[2018-11-18] MEDS ORDERED: DIPRIVAN 1% ONE (11:28)
[2018-11-18] MEDS ORDERED: ROBINUL ONE (11:28)
[2018-11-18] MEDS ORDERED: NS 1,000 ML ONE (11:45)
[2018-11-18] MEDS ORDERED: ANESTHESIA PB SET 88 IN 5742 ONE (11:45)
--- NOTE | 2018-11-18 18:13 | PROGRESS NOTE ---
DATE: 11/18/2018 SUBJECTIVE: The patient continues without chest discomfort or dyspnea. She remains in atrial fibrillation. Transesophageal echocardiography performed today. There reportedly was some cloudiness in the left atrial appendage, which was not well imaged. Cardioversion not pursued. OBJECTIVE: Blood pressure 111/47, heart rate 71, oxygen saturation 100% on room air. There is no significant jugular venous distention. Chest is clear to auscultation. Cardiac exam reveals an irregular rate and rhythm without appreciable murmur or gallop. There is no evidence of peripheral edema. IMPRESSION: 1. Recurrent atrial fibrillation with history of paroxysmal atrial fibrillation. 2. Mild coronary atherosclerosis by previous coronary angiography. Stress myocardial perfusion imaging on this admission negative for evidence of inducible myocardial ischemia. 3. Hypertensive cardiovascular disease with left ventricular diastolic dysfunction. 4. Type 2 diabetes mellitus. 5. Hyperlipidemia. 6. Parkinson disease. RECOMMENDATIONS: 1. Continue sotalol 80 mg p.o. b.i.d. 2. Continue Eliquis 5 mg p.o. b.i.d. 3. Reasonable for the patient to be discharged soon from a cardiovascular standpoint. 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 Paez. Repeat DOMINGUEZ/cardioversion may be considered in the future, after she has been anticoagulated further. cc: Nasir De La Cruz MD
--- NOTE | 2018-11-18 18:15 | PROGRESS NOTE ---
DATE: 11/18/2018 SUBJECTIVE: This patient is resting comfortably in bed. She had a DOMINGUEZ done today. Cardiology Department is following this patient closely. They did not do the cardioversion today for the possibility of a blood clot in the heart. We will wait for recommendations. OBJECTIVE: Vital Signs: Temperature 97.6 degrees, pulse 71, respiratory rate 16, blood pressure 111/47, oxygen saturation 100% on room air. HEENT: Head normocephalic. No trauma. PERRLA. Neck: Supple. No JVD. No masses. Central trachea. Chest: Clear to auscultation. No wheezing. No rales. Cardiovascular: Irregularly irregular rate and rhythm. She also has a left- sided AICD. Abdomen: Soft. Extremities: No edema. No clubbing. No cyanosis. Neurological: Alert and oriented x3. No focal neurological deficits. She has some tremors mostly at the level of the upper extremities at rest. LABORATORY: Glucose 109. BMP and CBC from yesterday stable. ASSESSMENT AND PLAN: 1. Acute chest pain, better after getting nitroglycerin, I associated with shortness of breath on presentation. A stress test was clinically negative for acute process. Electrocardiographically suggest possible Lexiscan induced myocardial ischemia but this is nonspecific due to her baseline ST-T abnormality. At this moment she is chest pain free. Continue with Eliquis. They tried to do a cardioversion today, but apparently there is a possibility of a blood clot in the heart. 2. Chronic atrial fibrillation, status post pacemaker. Continue with the same management. She is on anticoagulation. 3. Heart failure with preserved ejection fraction. Not in acute exacerbation at this moment. 4. Parkinson's disease. Continue with carbidopa-levodopa. 5. Gastroesophageal reflux disease. Continue with ranitidine. I will wait for the recommendations of Cardiology Department. Probably this patient can be discharged in the next 24 to 48 hours. cc: Laron Salas MD
[2018-11-18] MEDS: ZANTAC PO SCH (21:50)
[2018-11-18] MEDS: REMERON PO SCH (21:50)
[2018-11-19] MEDS: CARDIZEM PO SCH ×2 (04:00→08:30)
[2018-11-19 07:23] LABS: BASO# 0.01 X1000 (0.0-0.2); BASO% 0.1 % (0.0-0.8); EOS# 0.16 X1000 (0.0-0.7); EOS% 1.5 % (0.0-10.0); HEMATOCRIT 41.5 % (37.0-47.0); LYMPH# 3.47 X1000 (1.2-3.4); LYMPH% 31.5 % (20.5-51.1); MCHC 33.7 g/dL (33-37); MCV 94.7 FL (81-99); MONO# 1.14 X1000 (0.11-0.59); MONO% 10.3 % (1.7-9.3); MPV 9.6 FL (7.4-10.4); NEUT# 6.25 X1000 (1.4-6.5); NEUT% 56.6 % (42.2-75.2); PLT 178 X1000 (130-400); RBC 4.38 XMIL (4.2-5.4); RDW 14.5 % (11.5-14.5); WBC 11.03 X1000 (4.8-10.8)
[2018-11-19 07:43] LABS: AGAP 8; BUN 14 mg/dL (8-22); CALCIUM 9.1 mg/dL (8.8-10.2); CHLORIDE 101 mmol/L (98-107); COSMO 282; CREATININE 0.5 mg/dL (0.5-0.9); ESTIMATED GFR > 60; GLUCOSE 103 mg/dL (70-104); MAGNESIUM 1.9 mg/dL (1.5-2.7); POTASSIUM 3.4 mmol/L (3.5-5.1); SODIUM 141 mmol/L (136-145); TCO2 32 mmol/L (25-35)
--- NOTE | 2018-11-19 08:11 | EKG Report ---
Test Performed on : 11/19/2018 06:33:36 AM Test Reason : atrial fibrillation Blood Pressure : / mmHG Vent. Rate : 088 BPM Atrial Rate : 096 BPM P-R Int : 000 ms QRS Dur : 088 ms QT Int : 376 ms P-R-T Axes : 000 075 -67 degrees QTc Int : [address] & T wave abnormality, consider inferior ischemia ST & T wave abnormality, consider anterior ischemia Abnormal ECG When compared with ECG of 18-NOV-2018 07:06, Atrial fibrillation. has replaced Electronic ventricular pacemaker Confirmed by Eliezer FERMIN, Akhil ([id number]) on 11/19/2018 8:42:54 AM
[2018-11-19] MEDS: DITROPAN PO SCH (08:30)
[2018-11-19] MEDS: PAXIL PO SCH (08:30)
[2018-11-19] MEDS: ZOCOR PO SCH (08:31)
[2018-11-19] MEDS: BETAPACE PO SCH (08:31)
[2018-11-19] MEDS: ELIQUIS PO SCH (08:31)
[2018-11-19] MEDS: SINEMET 25/100 PO SCH (10:55)
[2018-11-19 15:22] VITALS: BP 153/85
--- NOTE | 2018-11-19 18:53 | Transesophageal Echocardiogram ---
DATE: 11/18/2018 INDICATION: Atrial fibrillation. Evaluate prior to cardioversion. PROCEDURE IN DETAIL: Ms. Navas was brought to the catheterization laboratory in fasting state. Informed consent was obtained. Prepped in usual fashion. She was anesthetized with Hurricaine spray, and after appropriate sedation, DOMINGUEZ probe was passed without difficulty. Images were obtained in multiple planes. At the conclusion of the procedure, a probe was removed. No difficulties. FINDINGS: 1. The right atrium is mildly enlarged. 2. Mild tricuspid regurgitation. 3. Normal RV size and systolic function. 4. Poor visualization of the pulmonic valve but no obvious insufficiency. 5. The left atrium appeared relatively normal in size. There was difficult visualization of the left atrial appendage. On some views, there was a suggestion of a low-flow state/sludging in the left atrial appendage and possible clot. The pulse wave Doppler velocity was less than 40 cm/sec indicating a low-flow state. 6. No mitral valve prolapse. Mild moderate mitral regurgitation. 7. Normal LV size. The LV systolic function was normal and greater than 55%. 8. Aortic valve opens well, was trileaflet, somewhat sclerotic, not stenotic. There was no insufficiency. 9. Aorta had mild to moderate atherosclerosis visualized in the descending thoracic aorta. 10. No pericardial effusion was identified. 11. There was evidence for a scant [id number] shunt on injection of agitated saline contrast suggesting a small PFO. This was not visualized on color Doppler. cc: MD Nasir Babb MD
--- NOTE | 2018-11-20 04:41 | DISCHARGE SUMMARY ---
ADMISSION DATE: 11/15/2018 DISCHARGE DATE: 11/19/2018 DISCHARGE DIAGNOSES: 1. Acute chest pain, resolved. 2. Chronic atrial fibrillation, status post pacemaker. 3. Heart failure with preserved ejection fraction. 4. Parkinson disease. 5. Gastroesophageal reflux disease. 6. Hyperlipidemia. 7. History of chronic obstructive pulmonary disease. 8. Type 2 diabetes. 9. Nicotine dependence. 10. History of lung cancer. PROCEDURE PERFORMED: 1. Pulmonary arteriogram dated 11/14/2018. Impression: COPD, no acute disease. 2. A stress test done on 11/16/2018. Conclusion: Adequate response to Lexiscan, clinically negative for chest pain, electrocardiographically suggestive of Lexiscan-induced myocardial ischemia, although specificity is limited given her baseline ST abnormality. Normal Lexiscan sestamibi images. HOSPITAL COURSE: A 73-year-old female with a past medical history of Parkinson, hypertension, diastolic heart failure, hyperlipidemia, diabetes, GERD, lung cancer, paroxysmal atrial fibrillation, presented to the emergency department with chest pain that happened 2 hours prior to arrival to the ED, she was admitted on 11/15/2018, she felt as though something was sitting on her chest. She denied any radiation of this pain, associated with shortness of breath, dizziness, a little bit of diaphoresis, and nausea. She received nitroglycerin and the chest pain resolved completely. She has a history of paroxysmal atrial fibrillation and she has a pacemaker placed as well. In the ER, this patient did appear to be in atrial fibrillation. Upon evaluation, also, in the ER, she was found to have some mild leukocytosis at 12.3. Troponin's negative. ProBNP slightly elevated at 1000. CT angiogram did not did not show any pulmonary embolism, but COPD. She was placed on the medical floor for chest pain and palpitation. Cardiology department was consulted and they decided to go ahead and continue with anticoagulation and do a stress test the next day. They discontinue propafenone and also held the beta blockers to plan to transition to sotalol. They did a myocardial perfusion scan/stress test that did not show any acute abnormality. Then, because of her persistent atrial fibrillation, they decided to do a transesophageal echocardiogram and cardioversion, but it looks like there was some cloudiness in the left atrial appendage which was not well imaged, so cardioversion were not done for the possibility of blood clot in that area. Cardiology Department followed this patient closely, and they stated it is okay to discharge this patient today from a cardiovascular standpoint. It is reasonable to follow up as an outpatient and repeat DOMINGUEZ/cardioversion in the future, and we will need to continue with blood thinners. Today, this patient is feeling better. She is not complaining of chest pain or shortness of breath, basically she is at her baseline. We will discharge this patient home with the new medication and we will stop the old medications that have been already stopped by Cardiology department. Follow up with Dr. Paez in 1 to 2 weeks. DISCHARGE PHYSICAL EXAMINATION: Vital Signs: Temperature 98.4 degrees, pulse 80, respiratory rate 16, blood pressure 153/85, oxygen saturation 100% on room air. HEENT: Head normocephalic. No trauma. PERRLA. Neck: Supple. No JVD. No masses. Central trachea. Chest: Clear to auscultation. No wheezing. No rales. Cardiovascular: Irregularly irregular rate and rhythm, she also has a left-sided AICD. Abdomen: Soft. Extremities: No edema, no clubbing, no cyanosis. Neurological: The patient is alert and oriented x3. She does have no neurological deficit, but some generalized tremors, mostly at the level of the upper extremities at rest. LABORATORY: WBC 11, hemoglobin 14, hematocrit 41.5, platelets 178,000. Sodium 141, potassium 3.4, chloride 101, bicarbonate 32, BUN 14, creatinine 0.5. Glucose 103, calcium 9.1, magnesium 1.9. We do have a urine culture that showed Streptococcus agalactiae but this patient is asymptomatic, so I will hold any kind of treatment. DISCHARGE MEDICATIONS: Eliquis 5 mg p.o. b.i.d., carbidopa/levodopa 25-100 mg, 1 tablet p.o. t.i.d., diltiazem HCl (Cardizem CD), 24 mg p.o. daily, mirtazapine 7.5 mg p.o. at bedtime, Ditropan 5 mg p.o. b.i.d., paroxetine 30 mg p.o. q.a.m., ranitidine 150 mg p.o. at bedtime, simvastatin 40 mg p.o. daily, and sotalol 80 mg p.o. b.i.d. DISCHARGE PLAN: The patient seems to be stable, it looks like this is her baseline. She will follow up with Dr. Paez in 1 to 2 weeks, and probably we will reconsider to do a new DOMINGUEZ/cardioversion in the near future. TIME SPENT: Discharging this patient 40 minutes. cc: Laron Salas MD
== END 2018-11-19 17:47 | disposition home health service (06) | DRG 309 ==
LOC: SUPCPDRO → ED 16:18 → SUATTDRO 11-15 00:37 → 4N 11-15 00:37
PROVIDERS: ATTEND Internal Medicine
CPT/HCPCS: 71275; 78452; 80048; 80053; 80162; 81001; 82550; 82948; 83735; 83880; 84484; 85025; 85610; 85730; 87077; 87088; 87186; 93005; 93010; 93017; 93312; 94761; 94799; 96360; 96361; 97162; 97530; 99285; A9270; A9500; J1160; J1250; J2405; J2785; J7030; Q9967; XXXXX